=== PATIENT | male | born 1960 | race Caucasian/White ===

== ENCOUNTER 2016-10-29 13:03 | Observation (INO) | payer BC ==
[2016-10-29] VITALS (8 sets, daily range): BP systolic 112–144; BP diastolic 55–79; Ht 182.9 cm; Wt 127.1 kg
[~2016-10-29] VITALS: Ht 182.9 cm; Wt 127.1 kg
[~2016-10-29 13:03] MED LIST: ADVIL200 MG PO; CHRONULAC30 ML PO; LOTREL 10/20 CA1 CAP PO; XANAX1 MG PO; ZOLOFT100 MG PO
[2016-10-29 13:57] LABS: BASOPHILS 0.6 % (0-2); EOSINOPHILS 2.2 % (0-7); HEMATOCRIT 29.8 % (42.0-54.0); HEMOGLOBIN 8.9 g/dL (13.5-17.5); IMMATURE GRANULOCYTES 2.2 % (0-5); MCHC 29.9 g/dL (31.0-37.0); MCV 90.3 fL (80.0-100.0); MEAN PLATELET VOLUME 10.1 fL (7.4-10.4); MONOCYTES 12.4 % (2-11); NEUTROPHILS 72.6 % (40-80); PLATELET COUNT 238 10x3/uL (130-400); RDW 17.6 % (11.5-14.5); WBC 11.3 10x3/uL (4.8-10.8)
[2016-10-29 13:59] LABS: UDS - AMPHET NEGATIVE QUAL (NEGATIVE); UDS - BARB NEGATIVE QUAL (NEGATIVE); UDS - BENZO POSITIVE QUAL (NEGATIVE); UDS - COCAINE NEGATIVE QUAL (NEGATIVE); UDS - METH NEGATIVE QUAL (NEGATIVE); UDS - OPIATE POSITIVE QUAL (NEGATIVE); UDS - PCP NEGATIVE QUAL (NEGATIVE); UDS - THC NEGATIVE QUAL (NEGATIVE)
[2016-10-29 14:10] LABS: ALBUMIN 2.5 g/dL (3.4-5.0); ALKALINE PHOSPHATASE 255 U/L (46-116); ALT (SGPT) 33 U/L (10-68); CALC OSMOLALITY 275 mosm/kg (275-300); CARBON DIOXIDE 30.7 mmol/L (21.0-32.0); CHLORIDE - SERUM 103 mmol/L (98-107); CREATININE - SERUM 0.7 mg/dL (0.6-1.3); GLUCOSE 122 mg/dL (74-106); POTASSIUM - SERUM 3.8 mmol/L (3.5-5.1); PROTEIN - SERUM 6.8 g/dL (6.4-8.2); SODIUM 138 mmol/L (136-145); UREA NITROGEN 11 mg/dL (7-18); eGFR NON AFRICAN AMERICAN > 90 mL/min (90-120)
[2016-10-29] MEDS ORDERED: VITAMIN D250000 UNIT (16:39)
[2016-10-30] VITALS (11 sets, daily range): BP systolic 118–140; BP diastolic 41–68
[2016-10-30 04:46] LABS: % SATURATION 11 % (15-55); IRON 28 ug/dl (35-150); TOTAL IRON BIND CAPACITY 241 ug/dl (260-445); UNSAT IRON BIND CAPACITY 213 ug/dl (150-375)
[2016-10-30 04:47] LABS: INR 1.23 (0.85-1.17); PROTIME 15.4 SECONDS (11.6-15.0)
[2016-10-30 04:59] LABS: ALBUMIN 2.2 g/dL (3.4-5.0); ALKALINE PHOSPHATASE 202 U/L (46-116); ALT (SGPT) 28 U/L (10-68); BILIRUBIN - TOTAL 1.67 mg/dL (0.2-1.3); CALC OSMOLALITY 275 mosm/kg (275-300); CALCIUM 7.7 mg/dL (8.5-10.1); CARBON DIOXIDE 31.3 mmol/L (21.0-32.0); CHLORIDE - SERUM 104 mmol/L (98-107); CREATININE - SERUM 0.6 mg/dL (0.6-1.3); FERRITIN 45 ng/mL (3-244); GLUCOSE 86 mg/dL (74-106); MAGNESIUM - SERUM 2.1 mg/dL (1.8-2.4); PHOSPHOROUS 2.9 mg/dL (2.5-4.9); POTASSIUM - SERUM 3.8 mmol/L (3.5-5.1); PROTEIN - SERUM 6.1 g/dL (6.4-8.2); SODIUM 139 mmol/L (136-145); UREA NITROGEN 10 mg/dL (7-18); eGFR NON AFRICAN AMERICAN > 90 mL/min (90-120)
[2016-10-30 06:24] LABS: BASOPHILS 0.4 % (0-2); EOSINOPHILS 2.3 % (0-7); HEMATOCRIT 26.7 % (42.0-54.0); HEMOGLOBIN 8.3 g/dL (13.5-17.5); IMMATURE GRANULOCYTES 1.7 % (0-5); LYMPHOCYTES 14.4 % (15-50); MCH 27.9 pg (26.0-34.0); MCHC 31.1 g/dL (31.0-37.0); MCV 89.6 fL (80.0-100.0); MEAN PLATELET VOLUME 9.8 fL (7.4-10.4); MONOCYTES 10.6 % (2-11); NEUTROPHILS 70.6 % (40-80); PLATELET COUNT 235 10x3/uL (130-400); RBC 2.98 10x6/uL (4.20-6.10); RDW 17.7 % (11.5-14.5); WBC 8.4 10x3/uL (4.8-10.8)
== END 2016-10-30 13:01 | disposition home or self-care (01) ==
LOC: D.ER 13:03 → D.CVICU 15:05 → OBSVTIME 15:05 → D.CVICU 15:05
PROVIDERS: Emergency Medicine; ADMIT Family Medicine
DX: T40.601A Poisoning by unspecified narcotics, accidental (unintentional), initial encounter (principal); R41.82 Altered mental status, unspecified; F10.20 Alcohol dependence, uncomplicated; G89.29 Other chronic pain; I10 Essential (primary) hypertension; K74.60 Unspecified cirrhosis of liver; D64.9 Anemia, unspecified; Y90.0 Blood alcohol level of less than 20 mg/100 ml; F41.9 Anxiety disorder, unspecified; F32.9 Major depressive disorder, single episode, unspecified; Z85.038 Personal history of other malignant neoplasm of large intestine; Z72.0 Tobacco use

== ENCOUNTER 2016-12-09 06:00 | Inpatient (IN) | payer BC ==
[~2016-12-09] VITALS: Ht 182.9 cm; Wt 129.7 kg
[2016-12-09] VITALS (16 sets, daily range): BP systolic 106–161; BP diastolic 54–87; BMI 35.3
[~2016-12-09 06:00] MED LIST changes: +VITAMIN D250000 UNIT
[2016-12-09 06:46] LABS: BASOPHILS 0.5 % (0-2); EOSINOPHILS 2.6 % (0-7); IMMATURE GRANULOCYTES 0.7 % (0-5); MCH 23.4 pg (26.0-34.0); MCHC 28.3 g/dL (31.0-37.0); MCV 82.8 fL (80.0-100.0); MEAN PLATELET VOLUME 9.9 fL (7.4-10.4); MONOCYTES 10.5 % (2-11); NEUTROPHILS 75.7 % (40-80); RBC 2.09 10x6/uL (4.20-6.10); RDW 16.5 % (11.5-14.5); WBC 9.7 10x3/uL (4.8-10.8)
[2016-12-09 06:58] LABS: HEMATOCRIT 17.3 % (42.0-54.0); HEMOGLOBIN 4.9 g/dL (13.5-17.5); PLATELET COUNT 166 10x3/uL (130-400)
[2016-12-09 07:10] LABS: ALBUMIN 2.3 g/dL (3.4-5.0); ALKALINE PHOSPHATASE 267 U/L (46-116); ALT (SGPT) 21 U/L (10-68); CALC OSMOLALITY 281 mosm/kg (275-300); CALCIUM 7.1 mg/dL (8.5-10.1); CARBON DIOXIDE 22.6 mmol/L (21.0-32.0); CHLORIDE - SERUM 106 mmol/L (98-107); CREATININE - SERUM 1.1 mg/dL (0.6-1.3); GLUCOSE 157 mg/dL (74-106); POTASSIUM - SERUM 3.5 mmol/L (3.5-5.1); PROTEIN - SERUM 6.2 g/dL (6.4-8.2); SODIUM 140 mmol/L (136-145); UREA NITROGEN 13 mg/dL (7-18); eGFR NON AFRICAN AMERICAN 73 mL/min (90-120)
[2016-12-09 07:15] LABS: CKMB 0.8 U/L (0.0-3.6); CREATINE KINASE 39 UL (21-232); PRO BNP 48 pg/mL (0-125); TROPONIN-I < 0.017 ng/mL (0.000-0.060)
--- NOTE | 2016-12-09 09:48 | NUR ---
RECIEVED PATIENT VIA STRETCHER FROM THE ER. PATIENT IS IN BATHROOM HAVING A BOWEL MOVEMENT. PRBC 1 UNIT COMPLETE. NOW FLUSHING LINE WITH SALINE.
--- NOTE | 2016-12-09 09:59 | NUR ---
PATIENT IS NOW IN BED. STOOL IS GRAINY IN CONSISTENCY WITH CLOTS, THERE IS BRIGHT RED BLOOD PRESENT MAKING THE WATER IN THE TOILET LIGHT RED, AND BLACK GRAINY STOOL THAT HAS SUNK TO THE BOTTOM OF THE TOILET. MODERATE AMOUNT. PATIENT IS ON ROOM AIR. NO SIGNS OF DISTRESS NOTED. PATIENT IS ON ROOM AIR. WILL CONTINUE TO MONITOR.
[2016-12-09 11:04] LABS: INR 1.41 (0.85-1.17); PROTIME 17.2 SECONDS (11.6-15.0)
[2016-12-09] MEDS ORDERED: ZOLOFT50 MG PO (11:22)
[2016-12-09] MEDS ORDERED: MILK THISTLE140 MG PO (11:23)
--- NOTE | 2016-12-09 13:15 | NUR ---
UNIT 2/4 COMPLETED.
--- NOTE | 2016-12-09 13:30 | NUR ---
UNIT 3/4 STARTED.
--- NOTE | 2016-12-09 19:10 | NUR ---
SHIFT ASSESSMENT COMPLETE, SEE FLOWSHEET FOR DETAILS. PATIENT LAYING IN BED WITH EYES CLOSED WHEN ENTERING ROOM. ALERT AND ORIENTED X4. RR EVEN AND NONLABORED, NC @ 2L. S1S2 WITH A RATE OF 108. PATIENT HAVING DARK BLOODY STOOLS. DENIES TROUBLE VOIDING. PERIPHERAL PULSES PALPABLE. VSS. SEE IV FLOWSHEET FOR IVS AND DRIPS.
--- NOTE | 2016-12-09 20:00 | NUR ---
PATIENT HAD AROUND 50MLS OF DARK, THICK BLOODY STOOL. PATIENT CLEANED AND BACK TO BED.
--- NOTE | 2016-12-09 21:00 | NUR ---
NIGHT MEDS GIVEN WITH SOME WATER. TOLERATED WELL.
[2016-12-09 21:58] LABS: BASOPHILS 0.3 % (0-2); EOSINOPHILS 0.2 % (0-7); IMMATURE GRANULOCYTES 0.7 % (0-5); LYMPHOCYTES 7.9 % (15-50); MCH 25.9 pg (26.0-34.0); MCHC 31.5 g/dL (31.0-37.0); MCV 82.1 fL (80.0-100.0); MEAN PLATELET VOLUME 9.8 fL (7.4-10.4); MONOCYTES 9.7 % (2-11); NEUTROPHILS 81.2 % (40-80); RDW 16.4 % (11.5-14.5); WBC 11.9 10x3/uL (4.8-10.8)
[2016-12-09 21:59] LABS: HEMATOCRIT 23.8 % (42.0-54.0); HEMOGLOBIN 7.5 g/dL (13.5-17.5); PLATELET COUNT 129 10x3/uL (130-400)
--- NOTE | 2016-12-09 22:15 | NUR ---
PATIENT UP TO BEDSIDE COMMODE. HAD SMALL, WATERY BM WITH SOME DARK BLOOD IN IT. VSS, WILL MONITOR.
--- NOTE | 2016-12-09 23:00 | NUR ---
REASSESSMENT COMPLETE. SEE FLOWSHEET FOR DETAILS.
[2016-12-10] VITALS (24 sets, daily range): BP systolic 93–151; BP diastolic 46–96
--- NOTE | 2016-12-10 01:00 | NUR ---
PATIENT RESTING WITH EYES CLOSED. RR EVEN AND NONLABORED. VSS.
--- NOTE | 2016-12-10 03:00 | NUR ---
REASSESSMENT COMPLETE, SEE FLOWSHEET FOR DETIALS. NO ACUTE CHANGES. VSS.
[2016-12-10 06:35] LABS: HEMATOCRIT 21.5 % (42.0-54.0); MCH 25.9 pg (26.0-34.0); MCHC 32.1 g/dL (31.0-37.0); MCV 80.8 fL (80.0-100.0); NEUTROPHILS 77.7 % (40-80); RBC 2.66 10x6/uL (4.20-6.10); RDW 16.7 % (11.5-14.5)
[2016-12-10 06:36] LABS: HEMOGLOBIN 6.9 g/dL (13.5-17.5); PLATELET COUNT 102 10x3/uL (130-400); WBC 8.7 10x3/uL (4.8-10.8)
[2016-12-10 06:51] LABS: ALBUMIN 2.3 g/dL (3.4-5.0); ANION GAP 12.1 mmol/L (8-16); BILIRUBIN - TOTAL 1.65 mg/dL (0.2-1.3); CALCIUM 7.1 mg/dL (8.5-10.1); CARBON DIOXIDE 25.9 mmol/L (21.0-32.0); CREATININE - SERUM 1.1 mg/dL (0.6-1.3)
[2016-12-10 12:59] LABS: HEMATOCRIT 23.7 % (42.0-54.0)
[2016-12-10 13:00] LABS: HEMOGLOBIN 7.3 g/dL (13.5-17.5)
--- NOTE | 2016-12-10 19:15 | NUR ---
ASSESSMENT COMPLETE. S1S2. NSR SHOWING ON MONITOR. RR UNLABORED WHEEZE NOTED ON BILATERALLY IN MID AND UPPER LOBES; DIMINISHED BILATERALLY IN LOWER LOBES. ABD FIRM;DISTENDED; DENIES PAIN TO ABD. C/O PAIN IN RIGHT SHOULDER AND BASE OF NECK. DENIES SOB. 2L VIA NC. SCD IN PLACE. URINAL AT BEDSIDE. RADIAL AND PEDAL PULSES PALPATED. GENERALIZED EDEMA NOTED TO EXTREMITIES X4.
--- NOTE | 2016-12-10 20:00 | NUR ---
ASSISTED PT TO BEDSIDE COMMODE. PT STATED FELT LIKE HAD TO HAVE BM; FLATULANCE AND UOP ONLY. 200 CC UOP; CONCENTRATED YELLOW. ASSISTED PT BACK TO BED; REPOSITIONED FOR COMFORT.
[2016-12-10 20:40] LABS: HEMATOCRIT 24.6 % (42.0-54.0); HEMOGLOBIN 7.8 g/dL (13.5-17.5)
--- NOTE | 2016-12-10 20:57 | NUR ---
PO MEDICATIONS TAKEN WITHOUT DIFFICULTY.
--- NOTE | 2016-12-10 23:17 | NUR ---
REASSESSMENT COMPLETE. NO CHANGES FROM PREVIOUS ASSESSMENT. SEE FLOW SHEET FOR DETAILS. DENIES ANY FURTHER NEEDS AT THIS TIME. WILL CONTINUE TO MONITOR.
--- NOTE | 2016-12-10 23:35 | NUR ---
PT PICKED/SCRATCHED SCABS/SORES FROM RT SHOULDER. LIGHT BLEEDING NOTED. CLEANED AREA/WOUND AND APPLIED DRESSING. INSTRUCTED PT NOT TO SCRATCH OR PICK AT SCABS.
--- NOTE | 2016-12-10 23:40 | NUR ---
EMPTIED URINALS. 150 CC TOTAL; CONCENTRATED YELLOW URINE.
[2016-12-11] VITALS (25 sets, daily range): BP systolic 102–152; BP diastolic 32–84; Ht 182.9 cm; Wt 129.7 kg
--- NOTE | 2016-12-11 02:10 | NUR ---
EMPTIED 750 CC UOP OUT OF URINALS. CONCENTRATED YELLOW.
--- NOTE | 2016-12-11 03:05 | NUR ---
REASSESSMENT COMPLETE. NO CHANGES FROM PREVIOUS ASSESSMENT. DENIES ANY FURTHER NEEDS AT THIS TIME. CALL LIGHT IN REACH. WILL CONTINUE TO MONITOR.
--- NOTE | 2016-12-11 03:17 | NUR ---
PT C/O PAIN IN RIGHT SHOULDER. PRN MORPHINE GIVEN PER ORDERS. SEE EMAR FOR DETAILS.
[2016-12-11 04:41] LABS: BASOPHILS 0.6 % (0-2); EOSINOPHILS 3.5 % (0-7); HEMATOCRIT 24.8 % (42.0-54.0); HEMOGLOBIN 7.7 g/dL (13.5-17.5); IMMATURE GRANULOCYTES 0.6 % (0-5); LYMPHOCYTES 12.9 % (15-50); MCH 25.7 pg (26.0-34.0); MCV 82.7 fL (80.0-100.0); MEAN PLATELET VOLUME 9.7 fL (7.4-10.4); MONOCYTES 11.4 % (2-11); PLATELET COUNT 118 10x3/uL (130-400); RDW 16.5 % (11.5-14.5); WBC 7.8 10x3/uL (4.8-10.8)
[2016-12-11 04:50] LABS: INR 1.33 (0.85-1.17); PROTIME 16.4 SECONDS (11.6-15.0)
[2016-12-11 04:55] LABS: ALBUMIN 2.3 g/dL (3.4-5.0); ALKALINE PHOSPHATASE 215 U/L (46-116); ALT (SGPT) 106 U/L (10-68); CALC OSMOLALITY 277 mosm/kg (275-300); CALCIUM 7.3 mg/dL (8.5-10.1); CHLORIDE - SERUM 105 mmol/L (98-107); CREATININE - SERUM 0.9 mg/dL (0.6-1.3); GLUCOSE 114 mg/dL (74-106); PROTEIN - SERUM 6.3 g/dL (6.4-8.2); SODIUM 138 mmol/L (136-145); UREA NITROGEN 16 mg/dL (7-18); eGFR NON AFRICAN AMERICAN > 90 mL/min (90-120)
[2016-12-11 04:59] LABS: POTASSIUM - SERUM 3.3 mmol/L (3.5-5.1)
--- NOTE | 2016-12-11 05:20 | NUR ---
COMPLETE BATH; COMPLETE LINEN CHANGE. DRESSING APPLIED TO 2 MORE AREAS ON RIGHT ARM. GREEN DISCHARGE NOTED TO RIGHT AC WOUNDS; CLEANED AND DRESSING APPLIED.
--- NOTE | 2016-12-11 05:36 | NUR ---
EMPTIED 250 CC UOP FROM URINALS.
--- NOTE | 2016-12-11 06:20 | NUR ---
NO VISITORS DURING VISITATION. DID NOT RECEIVE ANY CALLS LAST NIGHT.
--- NOTE | 2016-12-11 07:20 | NUR ---
REPORT RECD PT CARE ASSUMED. PT IS ALERT AND ORIENTED X 4. S1S2 NOTED, SR PER CM. LUNG SOUNDS CLR BILAT. ABD DISTENDED, DENIES TENDERNESS. PPP BOUNDING. SEE SHIFT ASSESSMENT FOR FURTHER DETAILS. VSS WILL MONITOR.
--- NOTE | 2016-12-11 08:04 | NUR ---
PT ASSITED TO BEDSIDE COMMODE. PT PASSES GAS ONLY. PT BACK TO BED. PT TOLERATED WELL.
--- NOTE | 2016-12-11 10:00 | NUR ---
PT RESTING IN BED QUIETLY. NO DISTRESS NOTED. VSS. WILL CONT TO MONITOR.
--- NOTE | 2016-12-11 12:15 | NUR ---
PT SEEN BY DR SANTORO. JUSTINE HERRERA FOR TOMORROW. PT PROVIDED WITH LUNCH TRAY.
[2016-12-11 12:40] LABS: HEMATOCRIT 24.5 % (42.0-54.0); HEMOGLOBIN 7.6 g/dL (13.5-17.5)
--- NOTE | 2016-12-11 13:05 | NUR ---
* Is the patient Alert and Oriented? Yes 0 * How many steps to enter\exit or inside your home? 0 0 * PCP Dr. Celaya 0 * Pharmacy [facility] in [place] 0 * Preadmission Environment Home with Family 0 * ADLs Independent 0 * Equipment Cane 0 * List name and contact numbers for known caregivers / representatives who currently or will assist patient after discharge: Spouse - [phone] 0 * Additional services required to return to the preadmission environment? Yes 0 * Can the patient safely return to the preadmission environment? Yes 0 * Has this patient been hospitalized within the prior 30 days at any hospital? No 12/11/2016 11:56 DCP: Discharge Planning Patient Name: ZOYA GUTIÉRREZ Admission Status: ER Accout number: [id number] Admission Date: 12-09-2016 : 1960 Admission Diagnosis: Attending: SAMANTHA Current LOS: 2 Planned Disposition: Home Primary Insurance: [employer] EXCHANGE Discharge Planning Comments: CM met with patient to assess dc plans/needs. Patient sleeping, easily awakened, but easily returns to sleep. He states he lives with his . He states he uses a cane for mobility. Spoke with his , Kallie, via telephone. She states patient has had home health services in the past with [facility] & would like to use them again when discharged for physical therapy. CM will follow. Veterinary Technician Assistant: Chelsy Gonzalez
--- NOTE | 2016-12-11 16:45 | NUR ---
PT ASSISTED TO BED SIDE COMMODE. PT UNABLE TO HAVE A BM, PASSES GAS ONLY. PT ASSISTED BACK TO BED, IN CONFORTABLE POSITION. VSS. WILL MONITOR.
--- NOTE | 2016-12-11 17:47 | NUR ---
BILMARIBETH AC IV SITES D/C AND RESITED TO LEFT HAND AND LEFT FOREARM, 20G.
--- NOTE | 2016-12-11 18:03 | NUR ---
PT AT BEDSIDE FOR VISITATION
--- NOTE | 2016-12-11 19:30 | NUR ---
Assessment complete. See flowsheet. Pt awake upon entrance into room with VSS. Pt alert, oriented to person, place, time and situation. Pupils size 3 bilaterally ERRLA. Pt moving all extremities with 4/5 strength. +2 pitting edema noted to lower extremities bilaterally. Pt calm and cooperative and receiving O2 @ 2L NC. Lung sounds clear to all ford. HR SR with S1S2 auscultated. All peripheral pulses +2 with capillary refill <3 seconds. Right hand PIV site CDI withi Protonix gtt infusing @ 8mg/hr (10cc/hr). Left underside forearm PIV CDI no s/s infection or infiltration with sandostatin infusing @ 5cc/hr. Left hand PIV site CDI no s/s infection or infiltration with MVI infusing @ 125cc/hr. Abdomen soft and obese with BS present to all quadrants. Abdomen distended, non-tender. Pt denies nausea. Urinals x2 emptied of 400cc concentrated, yellow urine. Pt c/o right shoulder pain from previous injury and asking about pain medication. Will administer when available. Fresh ice water provided per pt request. Call light and bedside table within pt reach. Temp 98.5F orally. CPOC.
[2016-12-11 19:37] LABS: HEMATOCRIT 25.6 % (42.0-54.0)
--- NOTE | 2016-12-11 21:00 | NUR ---
PM carafate dose administered. See MAR.
--- NOTE | 2016-12-11 21:30 | NUR ---
Librium administered. Morphine 2mg IV administered for c/o right shoulder pain. See MAR.
--- NOTE | 2016-12-11 23:30 | NUR ---
Reassessment complete. See flowsheet. Pt awake upon entrance into room with VSS. No neuro changes to note from previous assessment. O2 @ 2L NC. Lung sounds clear to all ford with diminished lower lobes. HR SR with S1S2 auscultated. All peripheral pulses +2 with capillary refill <3 seconds. PIV sites CDI with NO IVF changes to note from previous assessment. Abdomen remains obese with BS present to all quadrants. Urinal emptied of 150cc concentrated, yellow urine. Pt denies further needs at this time and continues to self-position for comfort. Call light and bedside table remain within pt reach. CPOC.
[2016-12-12] VITALS (26 sets, daily range): BP systolic 109–144; BP diastolic 49–81
--- NOTE | 2016-12-12 | NUR ---
NO bleeding noted. Sandostatin gtt turned off per order.
--- NOTE | 2016-12-12 01:30 | NUR ---
Pt helped to position for comfort with linen change completed. VSS. Pt reminded of NPO status. CPOC.
--- NOTE | 2016-12-12 03:30 | NUR ---
Reassessment complete. See flowsheet. Pt resting quietly with VSS and awakens easily. No neuro changes to note from previous assessment. O2 @ 2L NC. Lung sounds clear to all ford with diminished lower lobes. HR SR with S1S2 auscultated. All peripheral pulses +2 with capillary refill <3 seconds. PIV sites CDI with NO IVF changes to note from previous assessment. Abdomen remains soft/obese with BS present to all quadrants. Urinal emptied of 200cc concentrated, yellow urine. Pt denies further needs at this time and continues to self-position for comfort. Call light and bedside table remain within pt reach. CPOC.
--- NOTE | 2016-12-12 05:30 | NUR ---
Pt resting quietly with VSS. NO s/s pain or distress and allowed to continue resting undisturbed. Call light and bedside table within reach. CPOC.
[2016-12-12 06:07] LABS: BASOPHILS 0.4 % (0-2); EOSINOPHILS 4.5 % (0-7); HEMOGLOBIN 7.8 g/dL (13.5-17.5); IMMATURE GRANULOCYTES 0.3 % (0-5); LYMPHOCYTES 14.6 % (15-50); MCH 25.9 pg (26.0-34.0); MCHC 31.2 g/dL (31.0-37.0); MCV 83.1 fL (80.0-100.0); MEAN PLATELET VOLUME 9.6 fL (7.4-10.4); MONOCYTES 13.2 % (2-11); PLATELET COUNT 120 10x3/uL (130-400); RBC 3.01 10x6/uL (4.20-6.10); RDW 16.7 % (11.5-14.5); WBC 6.9 10x3/uL (4.8-10.8)
[2016-12-12 06:23] LABS: INR 1.3 (0.85-1.17); PROTIME 16.1 SECONDS (11.6-15.0)
[2016-12-12 06:24] LABS: ALBUMIN 2.3 g/dL (3.4-5.0); ALKALINE PHOSPHATASE 206 U/L (46-116); ALT (SGPT) 81 U/L (10-68); BILIRUBIN - TOTAL 1.79 mg/dL (0.2-1.3); CALC OSMOLALITY 283 mosm/kg (275-300); CALCIUM 7.3 mg/dL (8.5-10.1); CARBON DIOXIDE 28.6 mmol/L (21.0-32.0); CHLORIDE - SERUM 106 mmol/L (98-107); CREATININE - SERUM 0.9 mg/dL (0.6-1.3); GLUCOSE 111 mg/dL (74-106); SODIUM 142 mmol/L (136-145); UREA NITROGEN 13 mg/dL (7-18); eGFR NON AFRICAN AMERICAN > 90 mL/min (90-120)
--- NOTE | 2016-12-12 07:00 | NUR ---
REC'D REPORT AND RESUMED CARE, SLEEPING, AROUSABLE TO VERBAL STIMULI, ORIENTED, VSS, ASSESSMENT COMPLETE PER FLOWSHEET, CALL LIGHT IN REACH, C/O PAIN 8/10 IN RIGHT SHOULDER, INCISION WITH GAUZE DRESSING CHANGED, NO OTHER NEEDS AT THIS TIME
--- NOTE | 2016-12-12 09:15 | NUR ---
AM MEDS GIVEN PER MAR FLOWSHEET, MORPHINE 2 MG IVP GIVEN FOR PAIN 01/11, WILL CONTINUE POC
--- NOTE | 2016-12-12 10:58 | NUR ---
12/12/2016 10:54 CM: Case Management Admission notification faxed to [facility] per patients request 12/11.
--- NOTE | 2016-12-12 11:00 | NUR ---
RESTING WITH NO SIGNS OF DISTRESS, BLEEDING NOTED, LEFT FA PIV OUT, SKINCARE AND GAUZE DRESSING APPLIED, NO ACUTE CHANGE FROM PREVIOUS ASSESSMENT, VOICES NO OTHER NEEDS AT THIS TIME
--- NOTE | 2016-12-12 11:22 | NUR ---
GI LAB STAFF, AND ANESTHESIOLOGIST AT BEDSIDE FOR SET UP OF PENDING EGD, PATIENT AAO, VSS, NO NEEDS AT THIS TIME
--- NOTE | 2016-12-12 11:27 | NUR ---
DR. SANTORO HERE FOR EGD, PROCEDURE STARTED
--- NOTE | 2016-12-12 13:00 | NUR ---
CALL TO ROOM, WANTS MEDICINE TO SLEEP, ASKED FOR LIBRIUM, TO HELP HIM RELAX, LIBRIUM 25 MG PO GIVEN PER MAR FLOWSHEET
[2016-12-12 13:09] LABS: HEMATOCRIT 25.7 % (42.0-54.0)
--- NOTE | 2016-12-12 14:17 | NUR ---
SLEEPING WITH NO SIGNS OF DISTRESS, VSS, AROUSABLE TO VERBAL STIMULI, NO NEEDS AT THIS TIME
--- NOTE | 2016-12-12 15:14 | NUR ---
MVI BAG HUNG, SET TO INFUSE AT 125 CC/HR
--- NOTE | 2016-12-12 17:25 | NUR ---
ANXIOUS AND TEARFUL POST PHONE CALL FROM , STATES HE JUST WANTS TO GO HOME, DISCUSS STATUS AND NEED TO MAKE SURE BLOOD COUNT STABLIZES, PC TO DR FARRELL, NEW ORDER FOR ATIVAN 1MG IVP Q4,
--- NOTE | 2016-12-12 17:40 | NUR ---
ATIVAN 1 MG IVP GIVEN FOR ANXIETY
--- NOTE | 2016-12-12 19:20 | NUR ---
Assessment complete. See flowsheet. Pt awake upon entrance into room and voices anxiousness. Pt calmed and assured. Pt calmer now and cooperative. No neuro deficits noted. O2 @ 2L NC. Respirations even and unlabored. Pupils size 3 bilaterally ERRLA. Pt moving all extremities with full ROM; +2 pitting edema noted to lower extremities bilaterally. Urinal emptied of 125cc concentrated, yellow urine. Pt denies pain at this time but will administer Librium when available to help with DT symptoms. Lung sounds clear to all ford with diminished lower lobes. HR SR with S1S2 auscultated. All peripheral pulses +2 with capillary refill <3 seconds. Right hand PIV site CDI no s/s infection or infiltration with MVI infusing @ 125cc/hr. NS infusing @ 10cc/hr KVO rate and turned off while MVI infusing. Will restart after MVI infusion completed. Right forearm scabs noted and dry with no drainage currently. Abdomen soft, slightly distended and obese with BS present to all quadrants. SCDs secure bilaterally. Pt self-positioning for comfort. Fresh ice water provided per request. Call light and bedside table within reach. CPOC.
[2016-12-12 19:57] LABS: HEMATOCRIT 26.9 % (42.0-54.0); HEMOGLOBIN 8.3 g/dL (13.5-17.5)
--- NOTE | 2016-12-12 21:20 | NUR ---
Pt awake and watching television with VSS. NO further request at this time. Call light and bedside table remain within reach. CPOC.
--- NOTE | 2016-12-12 22:22 | NUR ---
Pt helped up to bathroom for BM with small amt brown stool no gross blood visualized. Pt performing self-bath with wipes. Gown and linen changes completed. Pt back to bed and self-positioning for comfort. Call light and bedside table placed within pt reach. CPOC.
--- NOTE | 2016-12-12 23:20 | NUR ---
Reassessment complete. See flowsheet. Pt awake and repositioning for comfort. No neuro changes to note. O2 2L NC. Lung sounds clear to all ford with diminished lower lobes. HR SR with S1S2 auscultated. All peripheral pulses +2 with capillary refill <3 seconds. PIV site CDI with NS infusing @ 10cc/hr. MVI infusion completed. BS +. Pt urinal emptied of 200cc concentrated, yellow urine. Pain denied. Pt continues to self-position for comfort. Call light and bedside table within reach. CPOC.
[2016-12-13] VITALS (14 sets, daily range): BP systolic 97–145; BP diastolic 46–87
--- NOTE | 2016-12-13 01:20 | NUR ---
Pt awake and voiding 225cc to urinal. VSS. No request at this time. Call light and bedside table remain within reach. CPOC.
--- NOTE | 2016-12-13 02:07 | NUR ---
Pt c/o anxiety. Ativan 1mg IVP administered. Urinal emptied of 700cc urine
--- NOTE | 2016-12-13 03:20 | NUR ---
Reassessment complete. See flowsheet. Pt resting and awakens to verbal stimulation with no neuro changes to note. Anxiety denied. Pain denied. O2 @ 2L NC. Lung sounds clear to all ford. HR SR. PIV sites CDI with NO IVF changes to note. BS +. Pt denies further needs at this time and continues to rest.
[2016-12-13 05:16] LABS: BASOPHILS 0.6 % (0-2); EOSINOPHILS 2.5 % (0-7); HEMOGLOBIN 8.1 g/dL (13.5-17.5); IMMATURE GRANULOCYTES 0.4 % (0-5); LYMPHOCYTES 11.1 % (15-50); MCH 25.7 pg (26.0-34.0); MCHC 31.2 g/dL (31.0-37.0); MCV 82.5 fL (80.0-100.0); MEAN PLATELET VOLUME 9.3 fL (7.4-10.4); MONOCYTES 14.1 % (2-11); NEUTROPHILS 71.3 % (40-80); PLATELET COUNT 118 10x3/uL (130-400); RBC 3.15 10x6/uL (4.20-6.10); RDW 16.9 % (11.5-14.5); WBC 7.2 10x3/uL (4.8-10.8)
--- NOTE | 2016-12-13 05:20 | NUR ---
Pt resting quietly with VSS. No s/s pain or distress.
[2016-12-13 05:32] LABS: INR 1.26 (0.85-1.17); PROTIME 15.7 SECONDS (11.6-15.0)
[2016-12-13 05:40] LABS: ALBUMIN 2.2 g/dL (3.4-5.0); ALKALINE PHOSPHATASE 206 U/L (46-116); ALT (SGPT) 61 U/L (10-68); BILIRUBIN - TOTAL 2.09 mg/dL (0.2-1.3); CALCIUM 7.1 mg/dL (8.5-10.1); CARBON DIOXIDE 30.5 mmol/L (21.0-32.0); CHLORIDE - SERUM 104 mmol/L (98-107); CREATININE - SERUM 0.7 mg/dL (0.6-1.3); GLUCOSE 109 mg/dL (74-106); PROTEIN - SERUM 6.2 g/dL (6.4-8.2); SODIUM 140 mmol/L (136-145); eGFR NON AFRICAN AMERICAN > 90 mL/min (90-120)
[2016-12-13 05:42] LABS: CALC OSMOLALITY 278 mosm/kg (275-300); UREA NITROGEN 9 mg/dL (7-18)
[2016-12-13 05:43] LABS: POTASSIUM - SERUM 2.6 mmol/L (3.5-5.1)
--- NOTE | 2016-12-13 05:54 | NUR ---
call center nurse physician paged for K+ 2.6 this AM
--- NOTE | 2016-12-13 07:43 | NUR ---
REPORT RECEIVED. ASSUMED CARE OF PATIENT. PT AWAKE AT THIS TIME. NO DISTRESS NOTED. C/O BEING COLD. BLANKET PROVIDED. BREAKFAST TRAY SET UP FOR HIM, BUT HE WANTED TO GET WARMED UP FIRST. VOICES NO OTHER NEEDS OR COMPLAINTS AT THIS TIME.
--- NOTE | 2016-12-13 09:31 | NUR ---
NUTRITION MONITORING & EVAL CHART REVIEWED. NURSING REPORTS PT HAS BEEN TOLERATING FULL LIQUIDS. NO INTAKE BREAKFAST THIS AM. TRAY AT BEDSIDE. RD FOLLOWING
--- NOTE | 2016-12-13 12:00 | NUR ---
PT BELONGINGS GATHERED AND BAGGED. BAG WITH MISCELLANEOUS BOTTLES OF MEDS AND PHONE CONTINUOUS IMPROVEMENT FACILITATOR ALONG WITH BLACK FLIP PHONE AND RED SHORTS. PT HAS BROWN/OLIVE CROCS. PT TO BE TRANSPORTED VIA WHEELCHAIR. HAS NS AND ON BAG 4 OF 6 OF POTASSIUM NOTIFIED OF ROOM CHANGE.
--- NOTE | 2016-12-13 12:35 | NUR ---
RECEIVED TO ROOM 2216 AT THIS TIME FROM [facility] VIA WHEELCHAIR. PT IS ALERT AND ORIENTED WITH RESPIRATIONS EVEN AND NON LABORED. ASSISTED TO BED WITH CALL LIGHT IN REACH, WILL CONTINUE WITH PLAN OF CARE.
--- NOTE | 2016-12-13 21:54 | NUR ---
REC'D WALKING TO THE BATHROOM. ALERT AND ORIENTED X4. DENIED PAIN AT THIS TIME. DENIED FURTHER NEEDS AT THIS TIME. INSTRUCTED TO CALL IF NEEDED ANYTHING. VERBALIZED UNDERSTANDING. WILL ADMIN PM/AM MEDS. NO DISTRESS NOTED. WILL CONT TO MONITOR.
[2016-12-14 04:00] VITALS: BP 94/41
[2016-12-14 05:39] LABS: BASOPHILS 0.7 % (0-2); EOSINOPHILS 3.3 % (0-7); HEMATOCRIT 24.4 % (42.0-54.0); HEMOGLOBIN 7.7 g/dL (13.5-17.5); IMMATURE GRANULOCYTES 0.2 % (0-5); MCH 25.8 pg (26.0-34.0); MCHC 31.6 g/dL (31.0-37.0); MCV 81.6 fL (80.0-100.0); MEAN PLATELET VOLUME 9.7 fL (7.4-10.4); MONOCYTES 12.9 % (2-11); NEUTROPHILS 66.9 % (40-80); PLATELET COUNT 109 10x3/uL (130-400); RBC 2.99 10x6/uL (4.20-6.10); RDW 17.2 % (11.5-14.5); WBC 5.5 10x3/uL (4.8-10.8)
[2016-12-14 05:44] LABS: INR 1.33 (0.85-1.17); PROTIME 16.3 SECONDS (11.6-15.0)
--- NOTE | 2016-12-14 05:50 | NUR ---
EYES CLOSED RESPIRATIONS WITH EASE AND UNLABORED.
[2016-12-14 05:54] LABS: ALBUMIN 2.1 g/dL (3.4-5.0); ALKALINE PHOSPHATASE 211 U/L (46-116); CALC OSMOLALITY 277 mosm/kg (275-300); CALCIUM 7.5 mg/dL (8.5-10.1); CARBON DIOXIDE 31.5 mmol/L (21.0-32.0); CHLORIDE - SERUM 102 mmol/L (98-107); CREATININE - SERUM 0.7 mg/dL (0.6-1.3); GLUCOSE 112 mg/dL (74-106); PROTEIN - SERUM 5.8 g/dL (6.4-8.2); SODIUM 139 mmol/L (136-145); UREA NITROGEN 9 mg/dL (7-18); eGFR NON AFRICAN AMERICAN > 90 mL/min (90-120)
[2016-12-14 06:00] LABS: ALT (SGPT) 44 U/L (10-68); POTASSIUM - SERUM 2.4 mmol/L (3.5-5.1)
--- NOTE | 2016-12-14 07:33 | NUR ---
SCHEDULED MEDICATIONS ADMINISTERED AT THIS TIME WELL PRN NORCO FOR PAIN AT THIS TIME. PAIN TO RIGHT SHOULDER WHERE PT HAS HAD SURGERY. IV POTASSIUM 10 MEQ INFUSING. PT IS NOT NPO, WILL FINISH REMAINDER OF THIS BAG. 10 MEQ OF LIQUID KCL ADMINISTERED IN APPLE JUICE. WILL ASSUME PO REPLACEMENT PROTOCOL IN TWO HOURS. PT DENIES NEEDS AT THIS TIME. WILL CONTINUE WITH PLAN OF CARE.
[2016-12-14 08:25] VITALS: BP 137/71
[2016-12-14 10:33] LABS: MAGNESIUM - SERUM 1.5 mg/dL (1.8-2.4); PHOSPHOROUS 2.8 mg/dL (2.5-4.9)
[2016-12-14 12:33] VITALS: BP 114/58
[2016-12-14] MEDS ORDERED: CARAFATE1 G/10 ML PO (14:35)
[2016-12-14] MEDS ORDERED: FUROSEMIDE20 MG PO (14:37)
[2016-12-14] MEDS ORDERED: PROTONIX40 MG PO (14:38)
--- NOTE | 2016-12-14 15:06 | NUR ---
CM REASSESSMENT NOTE: PATIENT SIGNED THE KELLY FORM WITH [facility] AND REFERRAL HAS BEEN SENT.
--- NOTE | 2016-12-14 15:29 | NUR ---
CM REASSESSMENT NOTE: PATIENT TO DISCHARGE TODAY HOME. FAMILY DRIVING PATIENT. PATIENT SIGNED THE KELLY FORM WITH [facility] AND REFERRAL HAS BEEN SENT.
[2016-12-14 16:26] LABS: MAGNESIUM - SERUM 1.5 mg/dL (1.8-2.4); PHOSPHOROUS 2.5 mg/dL (2.5-4.9)
[2016-12-14 16:28] LABS: POTASSIUM - SERUM 2.7 mmol/L (3.5-5.1)
[2016-12-14 16:33] VITALS: BP 137/74
[2016-12-14 20:00] VITALS: BP 101/49
[2016-12-15] VITALS: BP 120/59
--- NOTE | 2016-12-15 01:50 | NUR ---
PT RESTING QUIETLY, EYES CLOSED. WAITING ON LAB TO DRAW BLOOD FOR RECHECK OF POTASSIUM. URINE COLOR IS DARK ORANGE. GAVE PAIN MED FOR SHOULDER PAIN. WILL CONTINUE TO MONITOR.
[2016-12-15 03:56] LABS: BASOPHILS 0.6 % (0-2); EOSINOPHILS 4.4 % (0-7); HEMOGLOBIN 8.2 g/dL (13.5-17.5); IMMATURE GRANULOCYTES 0.2 % (0-5); LYMPHOCYTES 16.3 % (15-50); MCH 25.9 pg (26.0-34.0); MCHC 31.5 g/dL (31.0-37.0); MEAN PLATELET VOLUME 9.7 fL (7.4-10.4); MONOCYTES 15.2 % (2-11); NEUTROPHILS 63.3 % (40-80); PLATELET COUNT 126 10x3/uL (130-400); RBC 3.17 10x6/uL (4.20-6.10); RDW 17.1 % (11.5-14.5); WBC 5.3 10x3/uL (4.8-10.8)
[2016-12-15 03:59] LABS: INR 1.26 (0.85-1.17); PROTIME 15.7 SECONDS (11.6-15.0)
[2016-12-15 04:00] VITALS: BP 133/69
[2016-12-15 04:04] LABS: ALBUMIN 2.2 g/dL (3.4-5.0); ALKALINE PHOSPHATASE 231 U/L (46-116); ALT (SGPT) 40 U/L (10-68); BILIRUBIN - TOTAL 1.51 mg/dL (0.2-1.3); CALC OSMOLALITY 281 mosm/kg (275-300); CALCIUM 7.8 mg/dL (8.5-10.1); CARBON DIOXIDE 30.4 mmol/L (21.0-32.0); CHLORIDE - SERUM 106 mmol/L (98-107); CHOL - HDL RATIO 5.7 ratio (2.3-4.9); CHOLESTEROL, TOTAL 130 mg/dL (0-200); CREATININE - SERUM 0.7 mg/dL (0.6-1.3); GLUCOSE 116 mg/dL (74-106); HDL CHOLESTEROL 23 mg/dL (32-96); LDL CHOLESTEROL 94 mg/dL (0-100); LDL-HDL RATIO 4.1 ratio (1.5-3.5); PROTEIN - SERUM 6.2 g/dL (6.4-8.2); SODIUM 142 mmol/L (136-145); TRIGLYCERIDE 68 mg/dL (30-200); UREA NITROGEN 7 mg/dL (7-18); eGFR NON AFRICAN AMERICAN > 90 mL/min (90-120)
[2016-12-15 04:06] LABS: MAGNESIUM - SERUM 1.9 mg/dL (1.8-2.4)
--- NOTE | 2016-12-15 07:33 | NUR ---
PRN NORCO ADMINISTERED AT THIS TIME FOR RIGHT SHOULDER PAIN 01/11. PT REQUESTING TO SHOWER AT THIS TIME. WILL ASK FARM REPORTER TO ASSIST PT. ASSESSMENT PERFORMED PER FLOWSHEET. CALL LIGHT IN REACH, WILL CONTINUE WITH PLAN OF CARE.
[2016-12-15 08:16] VITALS: BP 145/80
--- NOTE | 2016-12-15 09:15 | NUR ---
CM called [facility] to let them know that the patient did not discharge and is still a patient in the hospital. CM will continue to follow and assist
[2016-12-15] MEDS ORDERED: K-DUR20 MEQ PO (10:12)
--- NOTE | 2016-12-15 10:20 | NUR ---
IV TO LEFT AC D/C WITH CATH TIP INTACT. EXPLAINED TO PT TO LET HIS SPOUSE KNOW THAT HE WOULD BE DISCHARGING HOME TODAY. PT VERBALIZED UNDERSTANDING. WILL GIVEN A DOSE OF KCL 40 MEQ PER SCHOOL OPERATIONS MANAGER BEFORE D/C HOME.
--- NOTE | 2016-12-15 12:13 | NUR ---
DANO NOTIFIED THAT PATIENT WAS DISCHARGED TODAY. PT DISCHARGED HOME WITH FAMILY TO DRIVE HOME
== END 2016-12-15 11:35 | disposition home health service (06) | DRG 378 ==
LOC: D.ER 06:00 → D.MS 08:06 → D.CVICU 08:06 → D.CLR 12:33 → D.CVICU 13:04 → D.MS 12-13 12:23
PROVIDERS: Emergency Medicine; Family Medicine; Internal Medicine Gastroenterology; ADMIT Emergency Medicine
PROC: 0DJ08ZZ Inspection of Upper Intestinal Tract, Via Natural or Artificial Opening Endoscopic (ICD-10-PCS; principal; 2016-12-09 16:00)
DX: K92.2 Gastrointestinal hemorrhage, unspecified (principal); D62 Acute posthemorrhagic anemia; F17.203 Nicotine dependence unspecified, with withdrawal; K25.9 Gastric ulcer, unspecified as acute or chronic, without hemorrhage or perforation; K70.30 Alcoholic cirrhosis of liver without ascites; F10.20 Alcohol dependence, uncomplicated; I10 Essential (primary) hypertension; F32.9 Major depressive disorder, single episode, unspecified; F41.9 Anxiety disorder, unspecified; I85.00 Esophageal varices without bleeding; K20.9 Esophagitis, unspecified

== ENCOUNTER 2016-12-19 17:42 | Emergency (ER) | payer BC ==
[2016-12-11 08:45] VITALS: BMI 39.3
[~2016-12-19 17:42] MED LIST changes: +CARAFATE1 G/10 ML PO; +FUROSEMIDE20 MG PO; +K-DUR20 MEQ PO; +MILK THISTLE140 MG PO; +PROTONIX40 MG PO; +ZOLOFT50 MG PO
[2016-12-19 18:38] LABS: BASOPHILS 1.3 % (0-2); EOSINOPHILS 2.4 % (0-7); HEMATOCRIT 27.6 % (42.0-54.0); HEMOGLOBIN 8.5 g/dL (13.5-17.5); IMMATURE GRANULOCYTES 0.4 % (0-5); LYMPHOCYTES 19.1 % (15-50); MCH 25.1 pg (26.0-34.0); MCHC 30.8 g/dL (31.0-37.0); MCV 81.7 fL (80.0-100.0); MEAN PLATELET VOLUME 9.9 fL (7.4-10.4); MONOCYTES 14.3 % (2-11); NEUTROPHILS 62.5 % (40-80); PLATELET COUNT 274 10x3/uL (130-400); RBC 3.38 10x6/uL (4.20-6.10); RDW 17.4 % (11.5-14.5); WBC 7.9 10x3/uL (4.8-10.8)
[2016-12-19 18:48] LABS: APTT 32.6 SECONDS (22.8-39.4); INR 1.25 (0.85-1.17); PROTIME 15.6 SECONDS (11.6-15.0)
[2016-12-19 18:55] LABS: ALBUMIN 2.5 g/dL (3.4-5.0); ALKALINE PHOSPHATASE 278 U/L (46-116); ALT (SGPT) 30 U/L (10-68); CALC OSMOLALITY 280 mosm/kg (275-300); CALCIUM 7.9 mg/dL (8.5-10.1); CARBON DIOXIDE 25.8 mmol/L (21.0-32.0); CHLORIDE - SERUM 105 mmol/L (98-107); CREATININE - SERUM 0.7 mg/dL (0.6-1.3); GLUCOSE 128 mg/dL (74-106); POTASSIUM - SERUM 3.3 mmol/L (3.5-5.1); SODIUM 141 mmol/L (136-145); UREA NITROGEN 6 mg/dL (7-18); eGFR NON AFRICAN AMERICAN > 90 mL/min (90-120)
[2016-12-19 19:05] LABS: AMYLASE - SERUM 35 U/L (25-115); CKMB 0.8 U/L (0.0-3.6); CREATINE KINASE 41 UL (21-232); LIPASE 173 U/L (73-393); PRO BNP 42 pg/mL (0-125); TROPONIN-I < 0.017 ng/mL (0.000-0.060)
[2016-12-19 21:10] LABS: APPEARANCE CLEAR (CLEAR); BILIRUBIN NEGATIVE (NEGATIVE); COLOR AMBER (YELLOW); GLUCOSE NEGATIVE (NEGATIVE); KETONE NEGATIVE (NEGATIVE); LEUKOCYTE ESTERASE NEGATIVE (NEGATIVE); NITRITE NEGATIVE (NEGATIVE); PROTEIN NEGATIVE (NEGATIVE); UROBILINOGEN NORMAL (NORMAL)
[2016-12-19 21:23] LABS: UDS - AMPHET NEGATIVE QUAL (NEGATIVE); UDS - BARB NEGATIVE QUAL (NEGATIVE); UDS - BENZO POSITIVE QUAL (NEGATIVE); UDS - COCAINE NEGATIVE QUAL (NEGATIVE); UDS - METH NEGATIVE QUAL (NEGATIVE); UDS - OPIATE NEGATIVE QUAL (NEGATIVE); UDS - PCP NEGATIVE QUAL (NEGATIVE); UDS - THC NEGATIVE QUAL (NEGATIVE)
== END 2016-12-20 00:20 | disposition other institution (70) ==
LOC: D.ER 17:42
PROVIDERS: Emergency Medicine
DX: R18.8 Other ascites (principal); D64.9 Anemia, unspecified; R94.31 Abnormal electrocardiogram [ECG] [EKG]; R00.0 Tachycardia, unspecified; I10 Essential (primary) hypertension; S22.089A Unspecified fracture of T11-T12 vertebra, initial encounter for closed fracture; S27.9XXA Injury of unspecified intrathoracic organ, initial encounter; S32.019A Unspecified fracture of first lumbar vertebra, initial encounter for closed fracture

== ENCOUNTER 2017-01-05 09:05 | Inpatient (IN) | payer BC ==
[~2017-01-05] VITALS: Ht 180.3 cm; Wt 129.4 kg
[~2017-01-05 09:05] MED LIST changes: -VITAMIN D250000 UNIT; +VITAMIN D250000 UNIT PO
[2017-01-05 09:54] LABS: BASOPHILS 0.6 % (0-2); EOSINOPHILS 4.3 % (0-7); HEMATOCRIT 26.2 % (42.0-54.0); IMMATURE GRANULOCYTES 0.5 % (0-5); LYMPHOCYTES 12.2 % (15-50); MCH 23.8 pg (26.0-34.0); MCHC 30.5 g/dL (31.0-37.0); MEAN PLATELET VOLUME 9.2 fL (7.4-10.4); MONOCYTES 14.2 % (2-11); NEUTROPHILS 68.2 % (40-80); RBC 3.36 10x6/uL (4.20-6.10); RDW 18.3 % (11.5-14.5); WBC 8.8 10x3/uL (4.8-10.8)
[2017-01-05 10:11] LABS: ALBUMIN 2.5 g/dL (3.4-5.0); ALKALINE PHOSPHATASE 217 U/L (46-116); ALT (SGPT) 12 U/L (10-68); AMYLASE - SERUM 17 U/L (25-115); BILIRUBIN - TOTAL 1.62 mg/dL (0.2-1.3); CALC OSMOLALITY 271 mosm/kg (275-300); CALCIUM 7.9 mg/dL (8.5-10.1); CARBON DIOXIDE 30.7 mmol/L (21.0-32.0); CHLORIDE - SERUM 99 mmol/L (98-107); CREATININE - SERUM 0.7 mg/dL (0.6-1.3); GLUCOSE 97 mg/dL (74-106); LIPASE 88 U/L (73-393); PROTEIN - SERUM 7.3 g/dL (6.4-8.2); SODIUM 137 mmol/L (136-145); UREA NITROGEN 7 mg/dL (7-18); eGFR NON AFRICAN AMERICAN > 90 mL/min (90-120)
[2017-01-05 10:12] LABS: PLATELET COUNT 208 10x3/uL (130-400)
[2017-01-05 10:13] LABS: POTASSIUM - SERUM 2.7 mmol/L (3.5-5.1)
[2017-01-05 10:22] LABS: APPEARANCE CLEAR (CLEAR); BILIRUBIN 1+ (NEGATIVE); COLOR DK YELLOW (YELLOW); GLUCOSE NEGATIVE (NEGATIVE); KETONE SMALL mg/dL (NEGATIVE); LEUKOCYTE ESTERASE TRACE (NEGATIVE); NITRITE NEGATIVE (NEGATIVE); PROTEIN NEGATIVE (NEGATIVE)
[2017-01-05 10:23] LABS: BACTERIA FEW /hpf (NONE SEEN); EPITHELIAL CELLS OCC /hpf (0-5); MUCUS <1+ /lpf (NONE SEEN); SPERMATOZOA RARE /hpf (NONE SEEN); WHITE CELLS - URINE 0-5 /hpf (0-5)
[2017-01-05 14:35] VITALS: BP 126/74; BMI 36.3
--- NOTE | 2017-01-05 15:01 | NUR ---
ADMISSION ASSESSMENT COMPLETED FOR PRESTON JACOBSON WHOM IS THIS PATIENTS NURSE. PT DENIES ANY CURRENT PAIN OR NEEDS AT THIS TIME. WILL CONTINUE WITH PLAN OF CARE.
[2017-01-05 15:41] VITALS: BP 120/69
--- NOTE | 2017-01-05 16:06 | NUR ---
PT CALLED AFTER USING THE RESTROOM. I NOTICED THAT IV HAD BEEN REMOVED AND CATHETER TIP WAS ON THE BATHROOM FLOOR ALL PIECES INTACT. IV RESITED TO LEFT HAND. PT TOLERATED WELL WILL CONTINUE TO MONITOR
[2017-01-05 19:00] VITALS: BP 121/75
--- NOTE | 2017-01-05 19:58 | NUR ---
PT LYING IN BED, AWAKE, ALERT, ORIENTED, REQUESTING SOMETHING FOR SLEEP. THE ER PHYSICIAN IS FINANCE ASSOCIATE FOR [facility] THIS WEEKEND. I HAVE CALLED ABOUT THIS REQUEST, WELL POSSIBLY RESTARTING PTS XANAX AND PAIN MEDICATION. PT IS AT HIGH RISK FOR DT/WITHDRAWAL, SO I ALSO ASKED FOR PRN LIBRIUM. MARIO SKY IN ER SPOKE WITH PHYSICIAN WHO STATED SHE WILL REVIEW THIS REQUEST AND CALL ME BACK. WILL CONTINUE TO MONITOR PT CLOSELY. BED LOW, CALL LIGHT IN REACH, SIDE RAILS X 2, HOB 20 DEGREES.
--- NOTE | 2017-01-05 22:21 | NUR ---
PT REQUESTING PRN PAIN MEDICATION STATING HE HAS CHRONIC LEFT SHOULDER PAIN AND CHRONIC BACK/NECK PAIN R/T OLD FX. PT IS ALERT AND ORIENTED AT THIS TIME. CONTINUE TO MONITOR CLOSELY.
[2017-01-06 04:00] VITALS: BP 121/68
--- NOTE | 2017-01-06 04:16 | NUR ---
PT HAS HAD TWO BOWEL ACCIDENTS, MODERATE TO SEVERE DIARRHEA, BEING UNABLE TO MAKE IT TO BEDSIDE COMMODE OR BATHROOM. PT ALSO DID HAVE A SHOWER EARLIER IN SHIFT. PT RESTING COMFORTABLY AT THIS TIME, EASILY ROUSABLE TO VERBAL STIMULI. CONTINUE TO MONITOR CLOSELY. BED LOW, CALL LIGHT IN REACH, SIDE RAILS X 2, HOB 30 DEGREES.
[2017-01-06 05:22] LABS: BASOPHILS 0.4 % (0-2); HEMATOCRIT 26.6 % (42.0-54.0); IMMATURE GRANULOCYTES 0.3 % (0-5); LYMPHOCYTES 10.9 % (15-50); MCH 23.5 pg (26.0-34.0); MCHC 30.1 g/dL (31.0-37.0); MEAN PLATELET VOLUME 9.1 fL (7.4-10.4); MONOCYTES 12.4 % (2-11); PLATELET COUNT 190 10x3/uL (130-400); RBC 3.41 10x6/uL (4.20-6.10); RDW 18.6 % (11.5-14.5)
[2017-01-06 05:40] LABS: ALBUMIN 2.5 g/dL (3.4-5.0); ALKALINE PHOSPHATASE 212 U/L (46-116); ALT (SGPT) 18 U/L (10-68); BILIRUBIN - TOTAL 1.37 mg/dL (0.2-1.3); CALC OSMOLALITY 273 mosm/kg (275-300); CALCIUM 7.8 mg/dL (8.5-10.1); CARBON DIOXIDE 28.8 mmol/L (21.0-32.0); CHLORIDE - SERUM 102 mmol/L (98-107); CREATININE - SERUM 0.7 mg/dL (0.6-1.3); GLUCOSE 103 mg/dL (74-106); MAGNESIUM - SERUM 1.7 mg/dL (1.8-2.4); POTASSIUM - SERUM 3.2 mmol/L (3.5-5.1); PROTEIN - SERUM 7.2 g/dL (6.4-8.2); SODIUM 138 mmol/L (136-145); UREA NITROGEN 7 mg/dL (7-18); eGFR NON AFRICAN AMERICAN > 90 mL/min (90-120)
--- NOTE | 2017-01-06 07:15 | NUR ---
RECEIVED REPORT. ASSUMED CARE OF PATIENT. CALL LIGHT WITHIN REACH. RESTING WITH EYES CLOSED, EASILY AROUSED. RESP EVEN AND UNLABORED. ASCITES NOTED TO ABDOMEN. NO DISTRESS. DENIES NEEDS AT THIS TIME.
[2017-01-06 08:00] VITALS: BP 123/67
--- NOTE | 2017-01-06 08:33 | NUR ---
K+ #1 HUNG AT THIS TIME. NO DISTRESS.
--- NOTE | 2017-01-06 10:10 | NUR ---
K+ RIDER #2 HUNG AT THIS TIME.
--- NOTE | 2017-01-06 11:39 | NUR ---
K+ RIDER #3 HUNG AT THIS TIME. NO DISTRESS. ONE EPISODE OF LOOSE STOOL CALL LIGHT WITHIN REACH.
[2017-01-06 12:00] VITALS: BP 141/71
--- NOTE | 2017-01-06 12:04 | NUR ---
MEDICATED FOR PAIN AT THIS TIME. NO DISTRESS.
[2017-01-06 13:12] VITALS: Ht 180.3 cm; Wt 129.4 kg
--- NOTE | 2017-01-06 14:49 | NUR ---
INCONTINENT CARE PROVIDED. PATIENT HAS LAST K+ RIDER INFUSING AT THIS TIME. NO DISTRESS.
[2017-01-06 16:00] VITALS: BP 133/61
--- NOTE | 2017-01-06 17:56 | NUR ---
K+ STILL LOW (3.4) AFTER RECEIVING 4 K+ RIDERS. PATIENT IS NOT NPO ANYMORE SO 40MEQ X 1 IN ORANGE JUICE ADMINISTERED AT THIS TIME FOR LOW POTASSIUM
[2017-01-06 19:00] VITALS: BP 130/75
--- NOTE | 2017-01-06 23:36 | NUR ---
NURSE ROUNDS 20:30 - PT LYING IN BED, RESTING COMFORTABLY, EASILY ROUSABLE TO VERBAL STIMULI. PT'S IV IN LEFT HAND/WRIST WAS PULLED OUT ACCIDENTALLY BY PT WHILE SLEEPING. IV RESITED TO LEFT WRIST BY DREW SKY. PT TOLERATED WELL. CONTINUE TO MONITOR CLOSELY. BED LOW, CALL LIGHT IN REACH, SIDE RAILS X 2, HOB 20 DEGREES.
[2017-01-07] VITALS (12 sets, daily range): BP systolic 104–146; BP diastolic 60–81
--- NOTE | 2017-01-07 06:18 | NUR ---
PT RESTING COMFORTABLY, EASILY ROUSABLE TO VERBAL STIMULI, C/O INCREASED ANXIETY AND PAIN. PRN ATIVAN AND NORCO GIVEN ALONG WITH 0600 MEDS WITH SMALL SIP OF H20 ONLY. PT DENIES ANY OTHER NEEDS. CONTINUE TO MONITOR CLOSELY. BED LOW, CALL LIGHT IN REACH, SIDE RAILS X 2, HOB 30 DEGREES.
[2017-01-07 06:48] LABS: BASOPHILS 0.9 % (0-2); EOSINOPHILS 5.6 % (0-7); HEMATOCRIT 26.2 % (42.0-54.0); HEMOGLOBIN 7.8 g/dL (13.5-17.5); IMMATURE GRANULOCYTES 0.3 % (0-5); LYMPHOCYTES 14.2 % (15-50); MCH 23.4 pg (26.0-34.0); MCHC 29.8 g/dL (31.0-37.0); MCV 78.7 fL (80.0-100.0); MEAN PLATELET VOLUME 9.4 fL (7.4-10.4); MONOCYTES 12.5 % (2-11); NEUTROPHILS 66.5 % (40-80); PLATELET COUNT 176 10x3/uL (130-400); RBC 3.33 10x6/uL (4.20-6.10); RDW 18.8 % (11.5-14.5)
[2017-01-07 06:52] LABS: WBC 6.5 10x3/uL (4.8-10.8)
[2017-01-07 06:53] LABS: APTT 38.7 SECONDS (22.8-39.4); INR 1.29 (0.85-1.17)
[2017-01-07 06:54] LABS: % SATURATION 6 % (15-55); IRON 16 ug/dl (35-150); TOTAL IRON BIND CAPACITY 262 ug/dl (260-445); UNSAT IRON BIND CAPACITY 246 ug/dl (150-375)
--- NOTE | 2017-01-07 07:00 | NUR ---
RECEIVED REPORT. ASSUMED CARE OF PATIENT. CALL LIGHT WITHIN REACH. DENIES NEEDS. ASKED IF HE WOULD STILL HAVE PROCEDURE TODAY. PATIENT IS SCHEDULED FOR PARACENTESIS THIS MORNING FOR ABD ASCITES. NO DISTRESS.
[2017-01-07 07:08] LABS: ALBUMIN 2.4 g/dL (3.4-5.0); ALKALINE PHOSPHATASE 196 U/L (46-116); ALT (SGPT) 22 U/L (10-68); BILIRUBIN - TOTAL 1.05 mg/dL (0.2-1.3); CALC OSMOLALITY 275 mosm/kg (275-300); CALCIUM 7.8 mg/dL (8.5-10.1); CARBON DIOXIDE 29.7 mmol/L (21.0-32.0); CHLORIDE - SERUM 105 mmol/L (98-107); CREATININE - SERUM 0.6 mg/dL (0.6-1.3); FERRITIN 18 ng/mL (3-244); GLUCOSE 90 mg/dL (74-106); POTASSIUM - SERUM 3.5 mmol/L (3.5-5.1); SODIUM 139 mmol/L (136-145); UREA NITROGEN 6 mg/dL (7-18); eGFR NON AFRICAN AMERICAN > 90 mL/min (90-120)
--- NOTE | 2017-01-07 10:45 | NUR ---
ASSISTED PATIENT TO RESTROOM AND BACK TO BED. AWAITING PARACENTESIS. NO DISTRESS.
--- NOTE | 2017-01-07 11:35 | NUR ---
PATIENT LEFT UNIT VIA BED FOR PARACENTESIS. PATIENT IN NO DISTRESS UPON LEAVING UNIT.
--- NOTE | 2017-01-07 12:08 | NUR ---
RECEIVED REPORT FOR IR, 8L REMOVED DURING PARACENTESIS. PATIENT WILL BE BACK TO UNIT SOON. RIGHT LOWER QUAD WAS INSERTION SITE, DERMABOND PRESENT.
--- NOTE | 2017-01-07 12:25 | NUR ---
RECEIVED PATIENT BACK TO ROOM 210. PATIENT ALERT/ORIENTED. RIGHT LOWER QUAD WITH DERMABOND PATENT. ASSISTED PATIENT TO RESTROOM. VITAL SIGNS STABLE. PATIENTS AT BEDSIDE, VOICE AT BEDSIDE AT THIS TIME ALSO. NO DISTRESS. CALL LIGHT PLACED WITHIN REACH.
--- NOTE | 2017-01-07 12:45 | NUR ---
MEDICATED FOR PAIN AND ANXIETY AT THIS TIME. SITE TO ABD STABLE. NO BLEEDING DERMABOND PATENT. VS STABLE. CALL LIGHT WITHIN REACH. 118/75.
[2017-01-07 12:53] LABS: PROTEIN - BODY FLUID 2.2 G/DL
--- NOTE | 2017-01-07 13:32 | NUR ---
SITTING UP IN BED CONSUMING NOON MEAL. NO DISTRESS. DENIES NEEDS. CALL LIGHT WITHIN REACH. AT BEDSIDE.
[2017-01-07 13:35] LABS: LYMPH - BF 15 %; MACROPHAGES BF 45 %; MESOTHELIALS BF 23 %; NEUT - BF 17 %
--- NOTE | 2017-01-07 18:24 | NUR ---
MEDICATED FOR PAIN AND ANXIETY AT THIS TIME. NO DISTRESS. CALL LIGHT WITHIN REACH.
--- NOTE | 2017-01-07 19:40 | NUR ---
INITIAL ROUNDS COMPLETED. PT SLEEPING, EASY TO AROUSE. STATED PAIN LEVEL NOW 3/10. WILL CONTINUE TO MONITOR.
--- NOTE | 2017-01-07 22:26 | NUR ---
ASSESSMENT COMPLETED AT 2009 HRS. VSS. SR PER CM HR 84. IV TO Fiordaliza HADN WITH BANANA BAG [id number]. IV PATENT. PT OPENS EYES TO VERBAL STIMULI. ALERT AND ORIENTED TO PERSON, PLACE AND TIME. LUNGS DIMINISHED IN BASES BILAT. ABRASION NOTED TO R FLANK. DRESSING TO R UPPER ARM CLEAN, DRY AND INTACT. R ABD INCISION CLEAN, DRY AND INTACT. PM MEDS GIVEN. PT CURRENTLY RESTING WITH EYES CLOSED. RESP EVEN AND REGULAR. SR UP X2,CALL LIGHT WITHIN REACH.
--- NOTE | 2017-01-08 00:13 | NUR ---
NO CHANGES TO NEURO STATUS NOTED. PT DENIED ANY DISCOMFORT. WILL CONTINUE TO MONITOR.
[2017-01-08 00:45] VITALS: BP 126/75
--- NOTE | 2017-01-08 02:10 | NUR ---
PT RESTING WITH EYES CLOSED. RESP EVEN AND REGULAR. SR UP X2,CALL LIGHT WITHIN REACH.
[2017-01-08 04:00] VITALS: BP 118/63
[2017-01-08 04:44] LABS: BASOPHILS 0.8 % (0-2); EOSINOPHILS 5.8 % (0-7); HEMATOCRIT 29.5 % (42.0-54.0); HEMOGLOBIN 8.8 g/dL (13.5-17.5); IMMATURE GRANULOCYTES 0.2 % (0-5); LYMPHOCYTES 14.1 % (15-50); MCH 23.7 pg (26.0-34.0); MCHC 29.8 g/dL (31.0-37.0); MCV 79.5 fL (80.0-100.0); MEAN PLATELET VOLUME 9.2 fL (7.4-10.4); MONOCYTES 10.5 % (2-11); NEUTROPHILS 68.6 % (40-80); PLATELET COUNT 185 10x3/uL (130-400); RBC 3.71 10x6/uL (4.20-6.10); WBC 6.4 10x3/uL (4.8-10.8)
--- NOTE | 2017-01-08 04:52 | NUR ---
ATIVAN 0.5 MG PO GINVE FOR C/O ANXIETY. NO CHANGE IN NEURO STATUS NOTED. WILL CONTINUE TO MONITOR.
[2017-01-08 05:08] LABS: ALBUMIN 2.5 g/dL (3.4-5.0); ALKALINE PHOSPHATASE 194 U/L (46-116); ALT (SGPT) 25 U/L (10-68); CALC OSMOLALITY 277 mosm/kg (275-300); CALCIUM 7.8 mg/dL (8.5-10.1); CARBON DIOXIDE 30.5 mmol/L (21.0-32.0); CHLORIDE - SERUM 106 mmol/L (98-107); CREATININE - SERUM 0.7 mg/dL (0.6-1.3); GLUCOSE 95 mg/dL (74-106); POTASSIUM - SERUM 3.5 mmol/L (3.5-5.1); PROTEIN - SERUM 6.8 g/dL (6.4-8.2); SODIUM 141 mmol/L (136-145); eGFR NON AFRICAN AMERICAN > 90 mL/min (90-120)
[2017-01-08 05:11] LABS: UREA NITROGEN 4 mg/dL (7-18)
--- NOTE | 2017-01-08 06:34 | NUR ---
VSS THROUGHOUT NGIHT. SR PER CM. PT STATED HE SLEPT WELL. NEEDS MET; WILL CONTINUE TO MONITOR.
--- NOTE | 2017-01-08 07:30 | NUR ---
AM ROUNDING DONE WITH PATIENT APPEARING TO BE ASLEEP. RESP ARE EVEN AND NON LABORED. ON HEART MONITOR SHOWING SR, HR 93. LEFT HAND SEEN WITH SALINE LOCK. ON ROOM AIR. FOR POSSIBLE DISCHARGE TODAY PER REPORT. WILL CPOC, CALL LIGHT IN USE.
[2017-01-08 08:00] VITALS: BP 156/73
--- NOTE | 2017-01-08 08:27 | NUR ---
REQUESTING PAIN MED FOR 8/10 PAIN TO RIGHT SHOULDER, NORCO GIVEN.
--- NOTE | 2017-01-08 08:40 | NUR ---
WHITE BORDERED GUAZE DRESSING SEEN TO RIGHT SHOULDER WITH DATE 01/06/17. THIS IS REMOVED. HEALING SHOULDER INCISION SEEN WITH SLIGHT REDNESS AND THREE AREAS THAT HAVE NOT HEALED. NO DRAINAGE SEEN. PATIENT STATES THAT HE HAD SHOULDER SURGERY APPROX. 6 WEEKS AGO IN [place]. NEW, DATED WHITE BORDERED GUAZE PLACED OVER THIS INCISION. TOLERATED WELL.
[2017-01-08 12:00] VITALS: BP 131/72
[2017-01-08] MEDS ORDERED: XIFAXAN550 MG PO (12:41)
[2017-01-08] MEDS ORDERED: FERROUS SULFAT325 MG PO (12:41)
[2017-01-08] MEDS ORDERED: ALDACTONE100 MG PO (12:41)
[2017-01-08] MEDS ORDERED: FUROSEMIDE20 MG PO (12:42)
[2017-01-08] MEDS ORDERED: CHRONULAC30 ML PO (12:42)
[2017-01-08] MEDS ORDERED: PROTONIX40 MG PO (12:42)
[2017-01-08] MEDS ORDERED: CARAFATE1 G/10 ML PO (12:43)
--- NOTE | 2017-01-08 14:34 | NUR ---
HEART MONITOR TURNED IN PATIENT IS BEING DISCHARGED.
--- NOTE | 2017-01-08 14:52 | NUR ---
SALINE LOCK REMOVED WITH CATH TIP INTACT. VERBAL AND WRITTEN DISCHARGE INSTRUCTIONS GIVEN TO PATIENT. WILL DISCHARGE PER WHEELCHAIR.
--- NOTE | 2017-01-08 15:14 | NUR ---
Patient Name: ZOYA GUTIÉRREZ Admission Status: ER Accout number: [id number] Admission Date: 01-06-2017 : 1960 Admission Diagnosis: Attending: EVERARDO Current LOS: 2 Anticipated DC Date: 01-08-2017 Planned Disposition: Home with Home Health Primary Insurance: [employer] EXCHANGE PLANNED EXTERNAL PROVIDER: [employer] Discharge Planning Comments: * Is the patient Alert and Oriented? Yes 0 * How many steps to enter\exit or inside your home? NONE 0 * PCP DR. BRYANT 0 * Pharmacy [facility] 0 * Preadmission Environment Home with Family 0 * ADLs Independent 0 * Equipment Cane 0 * Other Equipment [employer] OR NO MEDICAL EQUIPMENT PROVIDER PREFERENCE * List name and contact numbers for known caregivers / representatives who currently or will assist patient after discharge: MIHIR GUTIÉRREZ, SPOUSE, 0 * Community resources currently utilized Home Health 0 * Please name any agencies selected above. [facility], * Additional services required to return to the preadmission environment? No 0 * Can the patient safely return to the preadmission environment? Yes 0 * Has this patient been hospitalized within the prior 30 days at any hospital? Yes 0 CM MET WITH PT IN ROOM TO DISCUSS DISCHARGE PLANNING AND NEEDS. PT REPORTS LIVING AT HOME INDEPENDENTLY WITH SPOUSE. PT HAS [place]E AND NO MEDICAL EQUIPMENT PROVIDER PREFERENCE. PT HAS HOME HEALTH WITH NURSING AND OCCUPATIONAL THERAPY. PT HAS NO OTHER OUTSIDE SERVICES ASSISTING IN THE HOME. CM DISCUSSED AVAILABILITY OF HOME HEALTH, REHAB SERVICES AND MEDICAL EQUIPMENT. PT DENIES DISCHARGE NEEDS, REPORTS HIS IS HERE TO PICK HIM UP FOR DISCHARGE HOME TODAY. CM CALLED [employer], , NOTIFIED EFRA OF DISCHARGE; [facility] PLACED PT BACK ON HOME HEALTH SCHEDULE FOR [place] OF CARE. CM FAXED DISCHARGE INFORMATION TO [employer] AT [phone]. Scrap Breaker: Troy Dey
== END 2017-01-08 14:54 | disposition home health service (06) | DRG 442 ==
LOC: D.ER 09:05 → D.M2 11:30 → OBSVTIME 11:30 → D.M2 01-06 19:53
PROVIDERS: Emergency Medicine; Family Medicine; General Practice; Internal Medicine Gastroenterology; ADMIT Family Medicine
PROC: 0W9G3ZZ Drainage of Peritoneal Cavity, Percutaneous Approach (ICD-10-PCS; principal; 2017-01-07 11:30)
DX: K72.90 Hepatic failure, unspecified without coma (principal); R18.8 Other ascites; F17.203 Nicotine dependence unspecified, with withdrawal; K76.6 Portal hypertension; K74.60 Unspecified cirrhosis of liver; G89.29 Other chronic pain; E87.6 Hypokalemia; D63.8 Anemia in other chronic diseases classified elsewhere; D50.9 Iron deficiency anemia, unspecified; F10.20 Alcohol dependence, uncomplicated; Y90.2 Blood alcohol level of 40-59 mg/100 ml

== ENCOUNTER → 2017-02-06 09:33 | Outpatient (CLI) | payer BC ==
[2017-01-06 13:12] VITALS: BMI 39.8
[~2017-02-06 09:33] MED LIST changes: +ALDACTONE100 MG PO; +FERROUS SULFAT325 MG PO; +XIFAXAN550 MG PO
[2017-02-06 10:10] LABS: EOSINOPHILS 5.1 % (0-7); HEMATOCRIT 34.1 % (42.0-54.0); HEMOGLOBIN 10.4 g/dL (13.5-17.5); LYMPHOCYTES 19.1 % (15-50); MCH 23.9 pg (26.0-34.0); MCHC 30.5 g/dL (31.0-37.0); MCV 78.2 fL (80.0-100.0); MEAN PLATELET VOLUME 9.6 fL (7.4-10.4); MONOCYTES 12.4 % (2-11); NEUTROPHILS 62.4 % (40-80); PLATELET COUNT 171 10x3/uL (130-400); RBC 4.36 10x6/uL (4.20-6.10); RDW 21.8 % (11.5-14.5); WBC 4.9 10x3/uL (4.8-10.8)
[2017-02-06 10:27] LABS: ALBUMIN 3.3 g/dL (3.4-5.0); ALKALINE PHOSPHATASE 191 U/L (46-116); ALT (SGPT) 23 U/L (10-68); CALC OSMOLALITY 280 mosm/kg (275-300); CALCIUM 8.5 mg/dL (8.5-10.1); CARBON DIOXIDE 26.2 mmol/L (21.0-32.0); CHLORIDE - SERUM 107 mmol/L (98-107); CREATININE - SERUM 0.7 mg/dL (0.6-1.3); GLUCOSE 113 mg/dL (74-106); POTASSIUM - SERUM 4.2 mmol/L (3.5-5.1); PROTEIN - SERUM 7.2 g/dL (6.4-8.2); SODIUM 141 mmol/L (136-145); UREA NITROGEN 11 mg/dL (7-18); eGFR NON AFRICAN AMERICAN > 90 mL/min (90-120)
== END | disposition home or self-care (01) ==
LOC: D.LAB 08:45
PROVIDERS: Family Medicine
DX: K70.30 Alcoholic cirrhosis of liver without ascites (principal); R73.9 Hyperglycemia, unspecified; D64.9 Anemia, unspecified; E87.8 Other disorders of electrolyte and fluid balance, not elsewhere classified

== ENCOUNTER → 2017-02-13 11:23 | Outpatient (CLI) | payer BC ==
[2017-01-06 13:12] VITALS: BMI 39.8
[2017-02-13 11:49] LABS: BASOPHILS 0.9 % (0-2); HEMATOCRIT 38.1 % (42.0-54.0); HEMOGLOBIN 11.8 g/dL (13.5-17.5); IMMATURE GRANULOCYTES 0.4 % (0-5); LYMPHOCYTES 19.5 % (15-50); MCH 24.6 pg (26.0-34.0); MCV 79.5 fL (80.0-100.0); MEAN PLATELET VOLUME 9.3 fL (7.4-10.4); MONOCYTES 10.8 % (2-11); NEUTROPHILS 64.4 % (40-80); RBC 4.79 10x6/uL (4.20-6.10); RDW 22.3 % (11.5-14.5); WBC 5.5 10x3/uL (4.8-10.8)
[2017-02-13 11:50] LABS: PLATELET COUNT 209 10x3/uL (130-400)
[2017-02-13 12:12] LABS: ALBUMIN 3.5 g/dL (3.4-5.0); ALKALINE PHOSPHATASE 210 U/L (46-116); ALT (SGPT) 22 U/L (10-68); BILIRUBIN - TOTAL 0.84 mg/dL (0.2-1.3); CALC OSMOLALITY 281 mosm/kg (275-300); CALCIUM 8.7 mg/dL (8.5-10.1); CHLORIDE - SERUM 105 mmol/L (98-107); CREATININE - SERUM 0.8 mg/dL (0.6-1.3); GLUCOSE 119 mg/dL (74-106); POTASSIUM - SERUM 3.8 mmol/L (3.5-5.1); PROTEIN - SERUM 7.8 g/dL (6.4-8.2); SODIUM 141 mmol/L (136-145); UREA NITROGEN 12 mg/dL (7-18); eGFR NON AFRICAN AMERICAN > 90 mL/min (90-120)
== END | disposition home or self-care (01) ==
LOC: D.LAB 08:00
PROVIDERS: Family Medicine
DX: K70.30 Alcoholic cirrhosis of liver without ascites (principal); R73.9 Hyperglycemia, unspecified; D64.9 Anemia, unspecified; E87.8 Other disorders of electrolyte and fluid balance, not elsewhere classified

== ENCOUNTER → 2017-03-15 14:22 | Outpatient (CLI) | payer BC ==
[2017-01-06 13:12] VITALS: BMI 39.8
[~2017-03-15 14:22] MED LIST changes: +BIOTIN5 MG PO; +FUROSEMIDE40 MG PO; +HYDROCODON-ACE1 EAC7 PO; +MELATONIN5 MG PO; +MULTIPLE VITAMI1 TA1 PO; +NIACIN
[2017-03-15 15:05] LABS: BASOPHILS 0.7 % (0-2); EOSINOPHILS 2.7 % (0-7); HEMATOCRIT 34.7 % (42.0-54.0); LYMPHOCYTES 16.3 % (15-50); MCH 25.2 pg (26.0-34.0); MCHC 31.7 g/dL (31.0-37.0); MCV 79.4 fL (80.0-100.0); MEAN PLATELET VOLUME 9.6 fL (7.4-10.4); MONOCYTES 8.2 % (2-11); NEUTROPHILS 72.1 % (40-80); PLATELET COUNT 197 10x3/uL (130-400); RBC 4.37 10x6/uL (4.20-6.10); RDW 19.5 % (11.5-14.5)
[2017-03-15 15:17] LABS: ALBUMIN 3.2 g/dL (3.4-5.0); ALKALINE PHOSPHATASE 192 U/L (46-116); ALT (SGPT) 22 U/L (10-68); BILIRUBIN - TOTAL 0.78 mg/dL (0.2-1.3); CALC OSMOLALITY 279 mosm/kg (275-300); CALCIUM 8.6 mg/dL (8.5-10.1); CARBON DIOXIDE 25.2 mmol/L (21.0-32.0); CHLORIDE - SERUM 107 mmol/L (98-107); CREATININE - SERUM 0.7 mg/dL (0.6-1.3); GLUCOSE 103 mg/dL (74-106); POTASSIUM - SERUM 3.5 mmol/L (3.5-5.1); PROTEIN - SERUM 7.6 g/dL (6.4-8.2); SODIUM 141 mmol/L (136-145); UREA NITROGEN 10 mg/dL (7-18); eGFR NON AFRICAN AMERICAN > 90 mL/min (90-120)
== END | disposition home or self-care (01) ==
LOC: D.LAB 14:22
PROVIDERS: Family Medicine
DX: K70.30 Alcoholic cirrhosis of liver without ascites (principal); D64.9 Anemia, unspecified; R73.9 Hyperglycemia, unspecified; E87.8 Other disorders of electrolyte and fluid balance, not elsewhere classified

== ENCOUNTER → 2017-04-10 11:40 | Outpatient (CLI) | payer BC ==
[2017-01-06 13:12] VITALS: BMI 39.8
[2017-04-10 13:05] LABS: ALBUMIN 3.4 g/dL (3.4-5.0); BILIRUBIN - DIRECT 0.26 mg/dL (0.00-0.30); BILIRUBIN - INDIRECT 0.68 mg/dL (0.00-1.00); BILIRUBIN - TOTAL 0.94 mg/dL (0.2-1.3); PROTEIN - SERUM 8.4 g/dL (6.4-8.2)
== END | disposition home or self-care (01) ==
LOC: D.LAB 08:00
PROVIDERS: Family Medicine
DX: K70.30 Alcoholic cirrhosis of liver without ascites (principal); E87.8 Other disorders of electrolyte and fluid balance, not elsewhere classified

== ENCOUNTER 2017-05-07 07:54 | Day surgery (SDC) | payer BC ==
[~2017-05-07] VITALS: Ht 182.9 cm; Wt 114.8 kg
[~2017-05-07 07:54] MED LIST changes: -BIOTIN5 MG PO; -FUROSEMIDE40 MG PO; -HYDROCODON-ACE1 EAC7 PO; -MELATONIN5 MG PO; -MULTIPLE VITAMI1 TA1 PO; -NIACIN
[2017-05-07] MEDS ORDERED: XANAX1 MG PO (09:02)
[2017-05-07] MEDS ORDERED: FUROSEMIDE40 MG PO (09:02)
[2017-05-07] MEDS ORDERED: NIACIN (09:03)
[2017-05-07] MEDS ORDERED: MULTIPLE VITAMI1 TA1 PO (09:03)
[2017-05-07] MEDS ORDERED: MELATONIN5 MG PO (09:04)
[2017-05-07] MEDS ORDERED: BIOTIN5 MG PO (09:04)
[2017-05-07 09:12] VITALS: BP 135/82; Ht 182.9 cm; Wt 114.8 kg
[2017-05-07 09:40] LABS: HEMOGLOBIN 10.7 g/dL (13.5-17.5); MCH 24.5 pg (26.0-34.0); MCHC 31.5 g/dL (31.0-37.0); MEAN PLATELET VOLUME 10.2 fL (7.4-10.4); RBC 4.36 10x6/uL (4.20-6.10); RDW 16.1 % (11.5-14.5); WBC 5.3 10x3/uL (4.8-10.8)
[2017-05-07 10:24] LABS: CALC OSMOLALITY 276 mosm/kg (275-300); CALCIUM 8.1 mg/dL (8.5-10.1); CARBON DIOXIDE 26.7 mmol/L (21.0-32.0); CHLORIDE - SERUM 106 mmol/L (98-107); CREATININE - SERUM 0.5 mg/dL (0.6-1.3); GLUCOSE 133 mg/dL (74-106); POTASSIUM - SERUM 4.3 mmol/L (3.5-5.1); SODIUM 138 mmol/L (136-145); UREA NITROGEN 10 mg/dL (7-18); eGFR NON AFRICAN AMERICAN > 90 mL/min (90-120)
[2017-05-07] MEDS ORDERED: HYDROCODON-ACE1 EAC7 PO (12:53)
--- NOTE | 2017-05-07 13:30 | NUR ---
PT REC'D TO ROOM VIA STRETCHER. AWAKE, ALERT, ORIENTED. DRESSING TO UPPER MIDDLE BACK C/D/I. FULL LIQ TRAY PROVIDED.
--- NOTE | 2017-05-07 13:51 | NUR ---
TOLERATED DIET. 02 DECREASED TO 1.5 LITERS. WILL MONITOR.
--- NOTE | 2017-05-07 13:56 | NUR ---
IV D/C'D CATH INTACT.
--- NOTE | 2017-05-07 14:13 | NUR ---
02 SAT 91%, O2 INCREASED BACK TO 2LNC.
--- NOTE | 2017-05-07 14:15 | NUR ---
INCISION CHECK. EGG SIZED KNOT NOTED. OOZING BRB. 4x4 AND FOAM PRESSURE DRESSING APPLIED. DR. JASMIN BOGGS.
--- NOTE | 2017-05-07 14:35 | NUR ---
DR. CASTELLANOS HERE TO CHECK INCISION. REDRESSED WITH 4X4, FOAM PRESSURE BANDAGE AND CHEST WRAPPED WITH MARY WRAP PER DR. CASTELLANOS. WILL CONTINUE TO MONITOR.
--- NOTE | 2017-05-07 15:30 | NUR ---
ATTEMPTING TO WEAN PT OFF O2. 95% AT 2L PER NC. 02 OFF.
--- NOTE | 2017-05-07 15:45 | NUR ---
02 @ 89% ON RA. 02 REPLACED AT 2L.
--- NOTE | 2017-05-07 15:55 | NUR ---
O2 @93-94% ON 02. WILL ATTEMPT TO WEAN.
--- NOTE | 2017-05-07 16:00 | NUR ---
PT AMBULATED TO BR, NO DISTRESS.
--- NOTE | 2017-05-07 17:00 | NUR ---
DR. CASTELLANOS TO ROOM. PRESSURE DRESSING REMOVED PER DR. CASTELLANOS. INCISION STILL WITH SOME OOZING WHEN PRESSED ON PER DR. CASTELLANOS. HE REDRESSED WITH JOHN AND MICROFOAM TAPE, AND HE INSTRUCTED PT TO LEAVE IN PLACE TONIGHT AND REMOVE IN AM.
--- NOTE | 2017-05-07 17:00 | NUR ---
02 @ 93% ON RA. PT IN NO DISTRESS.
--- NOTE | 2017-05-07 17:15 | NUR ---
IV D/C'D CATH INTACT. D/C INSTRUCTIONS EXPLAINED TO PT. VOICED UNDERSTANDING. COPIES OF ALL GIVEN, WELL WRITTEN RX FOR [place]CO PER DR. CASTELLANOS.
--- NOTE | 2017-05-07 17:30 | NUR ---
D/C'D HOME VIA W/C TO PRIVATE CAR.
--- NOTE | 2017-05-08 08:31 | OP ---
PATIENT NAME: ZOYA GUTIÉRREZ MEDICAL RECORD: [id number] :[birth year] LOCATION:D.OPS ADMISSION DATE: SURGEON: MIRLANDE CASTELLANOS MD DATE OF OPERATION: 05/07/2017 SURGEON: Mirlande Castellanos MD PREOPERATIVE DIAGNOSES: 1. Lipoma of the mid upper back. 2. Residual hemorrhoidal skin tags. POSTOPERATIVE DIAGNOSES: 1. Lipoma of the mid upper back. 2. Residual hemorrhoidal skin tags. PROCEDURES PERFORMED: 1. Excisional biopsy of upper back lipoma 6 x 6 x 4 cm. 2. Excision of anal skin tags times 2. ANESTHESIA: General. COMPLICATIONS: None. SPECIMENS: 1. Back lipoma 6 x 6 x 4 cm. 2. Residual anal skin tags. ESTIMATED BLOOD LOSS: 30 cc. Case was clean. OPERATIVE COURSE: After consent was obtained, the patient was taken to the operating room. After intubation, the patient was placed in the prone position on the operating table. At this time, a timeout was taken to confirm the correct patient and procedure. The back and perineum was prepped and draped in typical sterile fashion. Local anesthetic was injected circumferentially around the anus and excision of skin tags was performed using Metzenbaum scissors. This was repeated on both skin tags. The incisions were closed with 3-0 Vicryl suture. Next, a 20 cc of local anesthetic were injected in the upper back around the lipoma. Transverse skin incision made with a 15 blade scalpel. Dissection continued to the level of the fascia using Metzenbaum scissors. The lipoma circumferentially dissected using Metzenbaum scissors and it was sent for permanent pathology. The wound was copiously irrigated and suctioned. Hemostasis was obtained with electrocautery. The wound was closed in multiple layers. The fascia was reapproximated using 2-0 Vicryl suture. The deep subQ was closed using 2-0 Vicryl suture. The dermis was reapproximated using 3-0 Vicryl and the skin was reinforced with Mastisol and Steri-Strips. At the end of the case, all needle and instrument counts were correct. No complications occurred. The patient was extubated and transferred to the PACU in stable condition. TRANSINT:[id number] Voice Confirmation ID: [id number] DOCUMENT ID: [id number] OPERATIVE REPORT [id number] ZOYA GUTIÉRREZ MIRLANDE CASTELLANOS MD at 0831 CC: [id number] DICTATION DATE: 05/07/17 1252 SPANISH TUTOR: 05/07/172028 [facility] 05/07/17 [id number] [place] [address]
== END 2017-05-07 17:30 | disposition home or self-care (01) ==
LOC: D.OPS 07:54 → D.PAN 11:15 → D.OPS 17:30
PROVIDERS: Anesthesiology
DX: D17.1 Benign lipomatous neoplasm of skin and subcutaneous tissue of trunk (principal); K64.4 Residual hemorrhoidal skin tags; K62.0 Anal polyp; Z01.812 Encounter for preprocedural laboratory examination

== ENCOUNTER → 2017-05-15 12:11 | Outpatient (CLI) | payer BC ==
[2017-05-07 09:12] VITALS: BMI 34.4
[~2017-05-15 12:11] MED LIST changes: +BIOTIN5 MG PO; +FUROSEMIDE40 MG PO; +HYDROCODON-ACE1 EAC7 PO; +MELATONIN5 MG PO; +MULTIPLE VITAMI1 TA1 PO; +NIACIN
[2017-05-15 13:18] LABS: ALBUMIN 3.3 g/dL (3.4-5.0); BILIRUBIN - DIRECT 0.29 mg/dL (0.00-0.30); BILIRUBIN - INDIRECT 0.43 mg/dL (0.00-1.00); BILIRUBIN - TOTAL 0.72 mg/dL (0.2-1.3); PROTEIN - SERUM 7.9 g/dL (6.4-8.2)
== END | disposition home or self-care (01) ==
LOC: D.LAB 12:11
PROVIDERS: Family Medicine
DX: K76.9 Liver disease, unspecified (principal); K70.30 Alcoholic cirrhosis of liver without ascites

== ENCOUNTER → 2017-08-07 10:23 | Outpatient (CLI) | payer OTHER ==
[2017-05-07 09:12] VITALS: BMI 34.4
[2017-08-07 11:07] LABS: ALKALINE PHOSPHATASE 272 U/L (46-116); ALT (SGPT) 29 U/L (10-68); BILIRUBIN - TOTAL 0.54 mg/dL (0.2-1.3); CALC OSMOLALITY 278 mosm/kg (275-300); CALCIUM 8.7 mg/dL (8.5-10.1); CARBON DIOXIDE 27.7 mmol/L (21.0-32.0); CHLORIDE - SERUM 106 mmol/L (98-107); CREATININE - SERUM 0.7 mg/dL (0.6-1.3); GLUCOSE 140 mg/dL (74-106); PROTEIN - SERUM 7.5 g/dL (6.4-8.2); SODIUM 140 mmol/L (136-145); UREA NITROGEN 7 mg/dL (7-18); eGFR NON AFRICAN AMERICAN > 90 mL/min (90-120)
== END | disposition home or self-care (01) ==
LOC: D.LAB 08:15
PROVIDERS: Family Medicine
DX: K76.9 Liver disease, unspecified (principal); K70.30 Alcoholic cirrhosis of liver without ascites

== ENCOUNTER 2017-12-29 11:52 | Inpatient (IN) | payer SELFPAY ==
[~2017-12-29] VITALS: Ht 182.9 cm; Wt 90.9 kg
[2017-12-29 12:54] LABS: BASOPHILS 0.2 % (0-2); EOSINOPHILS 0.3 % (0-7); HEMATOCRIT 31.6 % (42.0-54.0); HEMOGLOBIN 9.8 g/dL (13.5-17.5); IMMATURE GRANULOCYTES 0.3 % (0-5); LYMPHOCYTES 4.7 % (15-50); MCH 25.2 pg (26.0-34.0); MCV 81.2 fL (80.0-100.0); MONOCYTES 8.1 % (2-11); NEUTROPHILS 86.4 % (40-80); PLATELET COUNT 153 10x3/uL (130-400); RBC 3.89 10x6/uL (4.20-6.10); WBC 14.8 10x3/uL (4.8-10.8)
[2017-12-29 13:00] VITALS: BP 166/103
[2017-12-29 13:16] LABS: INR 1.48 (0.85-1.17); PROTIME 17.4 SECONDS (11.6-15.0)
[2017-12-29 13:17] LABS: ALBUMIN 2.5 g/dL (3.4-5.0); ALKALINE PHOSPHATASE 636 U/L (46-116); ALT (SGPT) 42 U/L (10-68); AMYLASE - SERUM 20 U/L (25-115); BILIRUBIN - TOTAL 7.69 mg/dL (0.2-1.3); CALC OSMOLALITY 266 mosm/kg (275-300); CARBON DIOXIDE 27.2 mmol/L (21.0-32.0); CHLORIDE - SERUM 100 mmol/L (98-107); CREATININE - SERUM 0.7 mg/dL (0.6-1.3); GLUCOSE 160 mg/dL (74-106); LIPASE 126 U/L (73-393); POTASSIUM - SERUM 3.5 mmol/L (3.5-5.1); PROTEIN - SERUM 8.3 g/dL (6.4-8.2); SODIUM 133 mmol/L (136-145); UREA NITROGEN 8 mg/dL (7-18); eGFR NON AFRICAN AMERICAN > 90 mL/min (90-120)
[2017-12-29 14:30] VITALS: BP 144/81
[2017-12-29 15:49] LABS: APPEARANCE TURBID (CLEAR); COLOR ORANGE (YELLOW); NITRITE NEGATIVE (NEGATIVE); PROTEIN NEGATIVE (NEGATIVE)
[2017-12-29 15:50] LABS: BILIRUBIN 2+ (NEGATIVE); GLUCOSE NEGATIVE (NEGATIVE); KETONE NEGATIVE (NEGATIVE)
[2017-12-29 15:52] LABS: BACTERIA MANY /hpf (NONE SEEN); EPITHELIAL CELLS 0-5 /hpf (0-5); SPERMATOZOA 25-50 /hpf (NONE SEEN)
[2017-12-29 16:25] VITALS: BP 169/92
[2017-12-29 20:22] VITALS: BP 140/73
[2017-12-29 23:17] VITALS: BP 140/85
[2017-12-30 01:45] VITALS: BP 140/85; Ht 182.9 cm; Wt 90.9 kg
[2017-12-30 04:38] VITALS: BP 175/95
[2017-12-30 06:38] LABS: BASOPHILS 0.3 % (0-2); EOSINOPHILS 0.8 % (0-7); HEMATOCRIT 29.3 % (42.0-54.0); HEMOGLOBIN 9.1 g/dL (13.5-17.5); IMMATURE GRANULOCYTES 0.4 % (0-5); LYMPHOCYTES 6.5 % (15-50); MCH 25.6 pg (26.0-34.0); MCHC 31.1 g/dL (31.0-37.0); MCV 82.5 fL (80.0-100.0); MEAN PLATELET VOLUME 9.7 fL (7.4-10.4); MONOCYTES 12.4 % (2-11); NEUTROPHILS 79.6 % (40-80); PLATELET COUNT 137 10x3/uL (130-400); RBC 3.55 10x6/uL (4.20-6.10); RDW 23.9 % (11.5-14.5); WBC 11.8 10x3/uL (4.8-10.8)
[2017-12-30 07:00] LABS: ALBUMIN 2.2 g/dL (3.4-5.0); ALKALINE PHOSPHATASE 546 U/L (46-116); ALT (SGPT) 39 U/L (10-68); BILIRUBIN - TOTAL 7.72 mg/dL (0.2-1.3); CALC OSMOLALITY 273 mosm/kg (275-300); CALCIUM 7.8 mg/dL (8.5-10.1); CARBON DIOXIDE 30.8 mmol/L (21.0-32.0); CHLORIDE - SERUM 101 mmol/L (98-107); CREATININE - SERUM 0.7 mg/dL (0.6-1.3); GLUCOSE 131 mg/dL (74-106); PROTEIN - SERUM 7.6 g/dL (6.4-8.2); SODIUM 137 mmol/L (136-145); UREA NITROGEN 8 mg/dL (7-18); eGFR NON AFRICAN AMERICAN > 90 mL/min (90-120)
[2017-12-30 07:02] LABS: POTASSIUM - SERUM 4.1 mmol/L (3.5-5.1)
[2017-12-30 09:37] VITALS: BP 127/82
[2017-12-30 09:40] LABS: APTT 35.3 SECONDS (22.8-39.4); INR 1.54 (0.85-1.17); PROTIME 17.7 SECONDS (11.6-15.0)
[2017-12-30 12:17] LABS: MACROPHAGES BF 65 %; MESOTHELIALS BF 9 %; NEUT - BF 10 %
== END 2017-12-30 14:59 | disposition left against medical advice (07) | DRG 432 ==
LOC: D.ER 11:52 → D.MS 14:25
PROVIDERS: Emergency Medicine; Specialist
PROC: 0W9G3ZZ Drainage of Peritoneal Cavity, Percutaneous Approach (ICD-10-PCS; principal; 2017-12-30 09:26)
DX: K70.31 Alcoholic cirrhosis of liver with ascites (principal); J18.9 Pneumonia, unspecified organism; N39.0 Urinary tract infection, site not specified; F17.203 Nicotine dependence unspecified, with withdrawal; F10.20 Alcohol dependence, uncomplicated; F41.9 Anxiety disorder, unspecified; F32.9 Major depressive disorder, single episode, unspecified; D63.8 Anemia in other chronic diseases classified elsewhere

== ENCOUNTER 2018-02-16 16:30 | Inpatient (IN) | payer OTHER ==
[~2018-02-16] VITALS: Ht 182.9 cm; Wt 104.5 kg
[2018-02-16 17:00] VITALS: BP 118/71; BMI 31.2
[2018-02-16 20:00] VITALS: BP 126/67
[2018-02-17 08:28] VITALS: BP 128/72
[2018-02-17 11:31] VITALS: BP 114/50
[2018-02-17 14:00] VITALS: Ht 182.9 cm; Wt 104.5 kg
[2018-02-17 21:07] VITALS: BP 134/84
[2018-02-18 08:45] VITALS: BP 104/61
[2018-02-18 21:01] VITALS: BP 127/64
[2018-02-19 04:57] VITALS: BP 134/84
[2018-02-19 09:19] VITALS: BP 123/71
[2018-02-19 13:27] VITALS: BP 154/80
[2018-02-19 21:10] VITALS: BP 135/86
[2018-02-20 04:33] VITALS: BP 129/55
[2018-02-20 05:00] VITALS: BP 129/55
[2018-02-20 05:43] LABS: ANION GAP 13.1 mmol/L (8-16); BILIRUBIN - TOTAL 4.32 mg/dL (0.2-1.3); CALCIUM 8.3 mg/dL (8.5-10.1); CARBON DIOXIDE 28.1 mmol/L (21.0-32.0); CREATININE - SERUM 1.2 mg/dL (0.6-1.3); POTASSIUM - SERUM 3.2 mmol/L (3.5-5.1); PROTEIN - SERUM 7.6 g/dL (6.4-8.2)
[2018-02-20 05:44] LABS: INR 1.73 (0.85-1.17); PROTIME 19.7 SECONDS (11.6-15.0)
[2018-02-20 08:40] VITALS: BP 124/76
[2018-02-20 16:11] VITALS: BP 138/80
[2018-02-20 21:11] VITALS: BP 95/49
[2018-02-21 06:26] VITALS: BP 101/45
[2018-02-21] MEDS ORDERED: HALDOL5 MG/ML IM (08:42)
[2018-02-21] MEDS ORDERED: Morphine CONCENTRATE SL (08:42)
[2018-02-21] MEDS ORDERED: CHRONULAC30 ML PO (08:43)
[2018-02-21 09:58] VITALS: BP 93/43
[2018-02-21 12:44] VITALS: BP 106/56
== END 2018-02-21 15:32 | disposition home health service (06) | DRG 951 ==
LOC: D.MS 16:30
PROVIDERS: Legal Medicine
DX: Z51.5 Encounter for palliative care (principal)

== ENCOUNTER 2018-03-06 13:40 | Inpatient (IN) | payer OTHER ==
[~2018-03-06] VITALS: Ht 188 cm; Wt 76.8 kg
[~2018-03-06 13:40] MED LIST changes: +HALDOL5 MG/ML IM; +Morphine CONCENTRATE SL
[2018-03-06 16:45] VITALS: BP 127/72
[2018-03-06 22:51] VITALS: BP 116/7
[2018-03-07 06:18] VITALS: BP 107/55
[2018-03-07 08:22] VITALS: BP 145/62; Ht 188 cm; Wt 76.8 kg
== END 2018-03-07 13:40 | disposition home health service (06) | DRG 885 ==
LOC: D.MS 13:40
DX: F23 Brief psychotic disorder (principal); K70.31 Alcoholic cirrhosis of liver with ascites; D63.8 Anemia in other chronic diseases classified elsewhere

== ENCOUNTER 2018-03-13 14:03 | Inpatient (IN) | payer MEDICARE ==
[~2018-03-13] VITALS: Ht 188 cm; Wt 108.9 kg
--- NOTE | ~2018-03-13 | MORECARE ---
CASE MANAGEMENT DISCHARGE SUMMARY PATIENT: ZOYA GUTIÉRREZ UNIT: [id number] ADM DATE: 03/13/18 AGE: 57 : 58 SEX: M ROOM/BED: D.2303 AUTHOR: LLOYD MATT PHYSICIAN: REFERRING PHYSICIAN: CARMELINA PAREKH MD DATE OF SERVICE: 03/15/18 Discharge Plan Patient Name: ZOYA GUTIÉRREZ Facility: [facility] : 1960 Planned Disposition: Hospice Medical Facility Anticipated Discharge Date: Discharge Date: 03/14/2018 Expected LOS: Initial Reviewer: [email or web address] Initial Review Date: 03/13/2018 Generated: 03/15/18 2:02 pm Comments DCP- Discharge Planning Updated by [email or web address]: Kirstin Urrutia on 03/14/18 1:[address] Patient Name: ZOYA GUTIÉRREZ Admission Status: ER Accout number: [id number] Admission Date: 03-13-2018 : 1960 Admission Diagnosis: Attending: CARMELINA PAREKH Current LOS: 1 Anticipated DC Date: Planned Disposition: Hospice Medical Facility Primary Insurance: UNINSURED DISCOUNT PLAN Discharge Planning Comments: CM met with family at bedside. Patient drowsy difficult to arouse. Family plans for patient to go back on hospice inpatient hopefully. CM explained that patient would be evaluated to see if he is appropriate for inpatient. CM awaiting [facility] to Eval. CM will continue to follow and assist as needed with discharge planning / needs. Medical Front Desk Coordinator: Kirsitn Urrutia DCP- Discharge Planning Updated by [email or web address]: Kirstin Urrutia on 03/14/18 12:[address] CM notified that patient family is requesting patient to be placed back on Hospice care. CM notified [facility] and faxed records as requested. [facility] will send nurse to evaluate to see if patient is inpatient appropriate. CM will continue to follow and assist as needed with discharge planning / needs. Last DP export: 03/14/18 1:17 Patient Name: ZOYA GUTIÉRREZ Page [id number] at 1302 All edits/amendments must be made on the electronic document DICTATION DATE: 03/15/18 1302 EDGING MACHINE SETTER: NAOMIE 03/15/18 1302 RPT#: [id number] DC DATE:03/14/18 STATUS: DIS IN [facility] [address] [place] [address] END OF REPORT
[2018-03-13 15:05] LABS: HEMATOCRIT 34.2 % (42.0-54.0); HEMOGLOBIN 11.4 g/dL (13.5-17.5); MCH 30.7 pg (26.0-34.0); MCHC 33.3 g/dL (31.0-37.0); MCV 92.2 fL (80.0-100.0); PLATELET COUNT 95 10x3/uL (130-400); RBC 3.71 10x6/uL (4.20-6.10); RDW 18.6 % (11.5-14.5); WBC 30.1 10x3/uL (4.8-10.8)
[2018-03-13 15:25] LABS: APPEARANCE HAZY (CLEAR); BILIRUBIN NEGATIVE (NEGATIVE); COLOR BROWN (YELLOW); GLUCOSE NEGATIVE (NEGATIVE); KETONE NEGATIVE (NEGATIVE); NITRITE NEGATIVE (NEGATIVE); PROTEIN 2+ mg/dL (NEGATIVE); SPECIFIC GRAVITY 1.015 (1.005-1.020); UROBILINOGEN NORMAL (NORMAL)
[2018-03-13 15:27] LABS: WHITE CELLS - URINE >50 /hpf (0-5)
[2018-03-13 15:28] LABS: APPEARANCE HAZY (CLEAR); BACTERIA MANY /hpf (NONE SEEN); COLOR BROWN (YELLOW); GLUCOSE NEGATIVE (NEGATIVE); KETONE NEGATIVE (NEGATIVE); NITRITE NEGATIVE (NEGATIVE); PROTEIN 1+ mg/dL (NEGATIVE); SPECIFIC GRAVITY 1.015 (1.005-1.020); UROBILINOGEN NORMAL (NORMAL)
[2018-03-13 15:29] LABS: BILIRUBIN NEGATIVE (NEGATIVE)
[2018-03-13 15:34] LABS: BACTERIA MANY /hpf (NONE SEEN); RED CELLS - URINE 0-5 /hpf (0-5); WHITE CELLS - URINE >50 /hpf (0-5)
[2018-03-13 15:43] LABS: APTT 43.3 SECONDS (22.8-39.4); INR 2.2 (0.85-1.17); PROTIME 23.8 SECONDS (11.6-15.0)
[2018-03-13 15:48] LABS: ALBUMIN 1.7 g/dL (3.4-5.0); ALKALINE PHOSPHATASE 273 U/L (46-116); ALT (SGPT) 32 U/L (10-68); BILIRUBIN - TOTAL 3.51 mg/dL (0.2-1.3); CALC OSMOLALITY 278 mosm/kg (275-300); CALCIUM 8.1 mg/dL (8.5-10.1); CARBON DIOXIDE 25.2 mmol/L (21.0-32.0); CHLORIDE - SERUM 97 mmol/L (98-107); CREATININE - SERUM 3.2 mg/dL (0.6-1.3); GLUCOSE 126 mg/dL (74-106); POTASSIUM - SERUM 4.6 mmol/L (3.5-5.1); SODIUM 132 mmol/L (136-145); UREA NITROGEN 47 mg/dL (7-18); eGFR NON AFRICAN AMERICAN 21 mL/min (90-120)
[2018-03-13 15:50] LABS: UDS - AMPHET NEGATIVE QUAL (NEGATIVE); UDS - BARB NEGATIVE QUAL (NEGATIVE); UDS - BENZO POSITIVE QUAL (NEGATIVE); UDS - COCAINE NEGATIVE QUAL (NEGATIVE); UDS - OPIATE POSITIVE QUAL (NEGATIVE); UDS - PCP NEGATIVE QUAL (NEGATIVE); UDS - THC NEGATIVE QUAL (NEGATIVE)
[2018-03-13 15:59] LABS: AMYLASE - SERUM 9 U/L (25-115); CKMB 0.3 U/L (0.0-3.6); LIPASE 68 U/L (73-393)
[2018-03-13 16:00] LABS: CREATINE KINASE 4 UL (21-232)
[2018-03-13 16:20] LABS: EOSINOPHILS 4 % (0-7); LYMPHOCYTES 5 % (15-50); MONOCYTES 3 % (2-11); NEUTROPHILS 83 % (40-80); PLATELET ESTIMATE DECREASED
[2018-03-13 17:17] VITALS: BP 124/64
[2018-03-13 17:57] VITALS: BP 129/67
[2018-03-13 20:15] VITALS: BP 116/72; BMI 30.8
[2018-03-14] VITALS (18 sets, daily range): BP systolic 88–181; BP diastolic 47–94; Ht 188 cm; Wt 108.9 kg
[2018-03-14 05:17] LABS: INR 1.99 (0.85-1.17)
[2018-03-14 05:23] LABS: ALBUMIN 1.7 g/dL (3.4-5.0); ANION GAP 13.2 mmol/L (8-16); BILIRUBIN - TOTAL 3.48 mg/dL (0.2-1.3); CARBON DIOXIDE 25.5 mmol/L (21.0-32.0); CREATININE - SERUM 3.1 mg/dL (0.6-1.3); MAGNESIUM - SERUM 1.6 mg/dL (1.8-2.4); PHOSPHOROUS 5.4 mg/dL (2.5-4.9); POTASSIUM - SERUM 4.7 mmol/L (3.5-5.1); PROTEIN - SERUM 7.1 g/dL (6.4-8.2)
[2018-03-14 05:32] LABS: BASOPHILS 0.1 % (0-2); EOSINOPHILS 0 % (0-7); HEMATOCRIT 32.9 % (42.0-54.0); HEMOGLOBIN 10.5 g/dL (13.5-17.5); IMMATURE GRANULOCYTES 0.4 % (0-5); MCH 30.3 pg (26.0-34.0); MCHC 31.9 g/dL (31.0-37.0); MCV 94.8 fL (80.0-100.0); MEAN PLATELET VOLUME 11.3 fL (7.4-10.4); MONOCYTES 6.9 % (2-11); NEUTROPHILS 90.6 % (40-80); PLATELET COUNT 106 10x3/uL (130-400); RBC 3.47 10x6/uL (4.20-6.10); RDW 18.9 % (11.5-14.5); WBC 31.9 10x3/uL (4.8-10.8)
== END 2018-03-14 20:30 | disposition home health service (06) | DRG 871 ==
LOC: D.ER 14:03 → D.EDHOLD 18:23 → D.ICU 18:23
PROVIDERS: Emergency Medicine; Internal Medicine Nephrology
DX: A41.50 Gram-negative sepsis, unspecified (principal); J96.01 Acute respiratory failure with hypoxia; J96.02 Acute respiratory failure with hypercapnia; E43 Unspecified severe protein-calorie malnutrition; G92 Toxic encephalopathy; S22.42XA Multiple fractures of ribs, left side, initial encounter for closed fracture; N39.0 Urinary tract infection, site not specified; K76.6 Portal hypertension; D68.9 Coagulation defect, unspecified; N17.9 Acute kidney failure, unspecified; K70.40 Alcoholic hepatic failure without coma; Z68.21 Body mass index [BMI] 21.0-21.9, adult; Z66 Do not resuscitate; F39 Unspecified mood [affective] disorder; R60.1 Generalized edema; N18.9 Chronic kidney disease, unspecified; E11.22 Type 2 diabetes mellitus with diabetic chronic kidney disease; E83.42 Hypomagnesemia